=== PATIENT | female | born 1950 | race Caucasian/White ===

== ENCOUNTER 2016-04-27 06:20 | Day surgery (SDC) | payer OTHER ==
[2016-04-26 11:24] VITALS: BMI 25.8
[~2016-04-27] VITALS: Ht 160 cm; Wt 58.7 kg
[2016-04-27] VITALS (16 sets, daily range): BP systolic 154–207; BP diastolic 78–98; PULSE 71–90; RESP 16–22; Ht 160 cm; Wt 58.7 kg
[2016-04-27] MEDS ORDERED: SUCCINYLCHOLINE CHLORIDE 100 MG/5 ML SYG IV ONE (07:00)
[2016-04-27] MEDS ORDERED: CIPRO 400 MG/200 ML D5W IVPB ONE (07:00)
[2016-04-27] MEDS ORDERED: LIDOCAINE 2% (SDV) 5 ML INJ ONE (07:00)
[2016-04-27] MEDS ORDERED: LISI20TA11 PO (07:04)
[2016-04-27] MEDS ORDERED: AMLO-147 PO (07:05)
[2016-04-27] MEDS ORDERED: GLIP5TAB13 PO (07:06)
[2016-04-27] MEDS ORDERED: D-ME473S2 PO (07:07)
[2016-04-27] MEDS ORDERED: INDOMETHACIN 50 MG SUPP PR ONE (07:30)
[2016-04-27] MEDS ORDERED: IOHEXOL 300MG/ML 30 ML BTL ONE (07:30)
[2016-04-27 07:45] LABS: ADD SCAN DIFF NO
[2016-04-27 07:52] LABS: BASOPHIL # 0.1 10^3/ul (0.0-0.1); BASOPHILS % 0.6 % (0.0-2.0); EOSINOPHILS # 0.3 10^3/ul (0.0-0.5); EOSINOPHILS % 3.5 % (0.0-7.0); HEMATOCRIT 31.4 % (37.0-47.0); HEMOGLOBIN 10.4 g/dl (12.0-16.0); LYMPHOCYTES # 3.5 10^3/ul (0.8-2.9); LYMPHOCYTES % 40.9 % (15.0-51.0); MEAN CORPUSCULAR HEMOGLOBIN 29.5 pg (29.0-33.0); MEAN CORPUSCULAR HGB CONC 33.1 g/dl (32.0-37.0); MEAN PLATELET VOLUME 9.7 fl (7.4-10.4); MONOCYTE # 0.9 10^3/ul (0.3-0.9); MONOCYTES % 10.3 % (0.0-11.0); NEUTROPHIL # 3.8 10^3/ul (1.6-7.5); NEUTROPHILS % 44.5 % (39.0-77.0); PLATELET COUNT 337 10^3/UL (140-415); RED BLOOD COUNT 3.53 10^6/ul (4.20-5.40); RED CELL DISTRIBUTION WIDTH 15.8 % (11.5-14.5); WHITE BLOOD COUNT 8.6 10^3/ul (4.8-10.8)
[2016-04-27 07:56] LABS: ALBUMIN 3.2 g/dl (3.3-4.9); INR 0.97; PROTIME 12.9 Sec (12.2-14.2)
[2016-04-27 07:57] LABS: PARTIAL THROMBOPLASTIN TIME 27.3 Sec (25.0-35.0)
[2016-04-27 07:59] LABS: BILIRUBIN,INDIRECT 0.2 mg/dl (0-1.1); BILIRUBIN,TOTAL 0.2 mg/dl (0.2-1.3)
[2016-04-27 08:04] LABS: CALCIUM 8.4 mg/dl (8.4-10.2); POTASSIUM 4.9 mmol/L (3.5-5.1)
[2016-04-27 08:07] LABS: CREATININE 4.63 mg/dl (0.44-1.00)
[2016-04-27] MEDS ORDERED: PROPOFOL 20 ML ONE (08:22)
[2016-04-27] MEDS ORDERED: MEPERIDINE 25 MG INJ IV PRN (09:00)
[2016-04-27] MEDS ORDERED: ONDANSETRON 4 MG INJ IV PRN (09:00)
[2016-04-27] MEDS ORDERED: FENTAnyl 50 MCG/ML VIAL IV PRN (09:00)
--- NOTE | 2016-04-27 09:42 | RADRPT ---
PROCEDURE: Intraoperative imaging for ERCP with fluoroscopy. CLINICAL INDICATION: Right upper quadrant pain. Postop. Intraoperative. TECHNIQUE: 18 images of the right upper quadrant of the abdomen were obtained in the operating irene m with an image intensifier. No radiologist was in attendance. 12.9 seconds of fluoroscopy time wa s used. COMPARISON: No prior study is available for comparison. FINDINGS: Images demonstrate the endoscope in position. Contrast was injected into the common bile duct. Con trast enters the common bile duct not does not enter intrahepatic bile ducts. Contrast is noted in the common bile duct up to the point of multiple surgical clips. Contrast is not an. The cystic du ct but does. The duodenum. IMPRESSION: 1. ERCP as described above. 2. There appears to be obstruction of the upper common bile duct due to overlying surgical clips. Call report: A call report of the findings was made to Dr. Lau on 04/27/2016 at 0940 hours. RPTAT: QQ .Chad Brown MD, MD Date Time Electronically viewed and signed by .Chad Brown MD, on 04/27/2016 09:41 .R/
[2016-04-27] MEDS: LABETALOL HCL 20MG INJ IV PRN ×2 (09:47→10:07)
--- NOTE | 2016-04-27 11:53 | GILP ---
DATE OF PROCEDURE: 04/27/2016 PROCEDURE PERFORMED: ERCP. INDICATION: A 65-year-old female undergoing this procedure for removal of the stent and this was th e only information given to me both by the patient and the primary care office. The patient had ant e surgery at [facility]. Then, she had open surgery, but no other information was available either from the patient's , or the patient, or from the primary care office. The only information I had was to remove the stent. So the purpose of this procedure is to remove the stent and obtain a cholangiogram. As per the , they removed the stone at [facility]. The risks of the procedure, related and unrelated complications, anesthetic risks, alternatives discussed and inform ed consent was obtained. DESCRIPTION OF PROCEDURE: The patient was brought to the GI lab, sedated and intubated by the anest hesiologist and placed in a prone position. Cipro was given. Scope was passed with much ease into the esophagus, advanced further down into stomach and duodenum. Ampulla identified. There was a pe riampullary diverticulum. Stent was identified. Stent was removed successfully through the snare. However, when I did a cholangiogram, no dye was going above the staple near the cystic duct, indica ting that the bile duct was completely blocked by the staple. No wire would go, no dye would go. I did an occlusive cholangiogram, manipulated in all different directions, but no dye was going above the cystic duct junction indicating that the surgeon had accidentally put the staple on the bile du ct, resulting in complete blockage. So, scope was removed with good patient tolerance. IMPRESSION: 1. Removal of stent. 2. Complete blockage of the bile duct while doing cholecystectomy with a staple. PLAN: I wanted to send the patient to the ER for the drainage procedure, but before that I tried to gather more information. Luckily, son was here and son said yes patient had a complication by the surgeon at [facility] in [facility]. Subsequently, patient was transferred to the [facility] and they did a major surgery and fixed the problem. So, my personal feeling is batool t gathering information from the patient that they must have connected the bile duct to the jejunum. However, I will try to gather all the operative report and information and after that, we will dec mallika whether the patient needs hospitalization through the emergency room or not. Dictated By: RAI SANZ/KACIE Conf#: [id number] [facility]#: [id number] CC: ; RAI PIERCE MD;*EndCC*
== END 2016-04-27 11:35 | disposition home or self-care (01) ==
LOC: GIL 06:20 → SDS 06:20 → GIL 11:35
PROVIDERS: ATTEND Internal Medicine Gastroenterology
DX: Z45.89 Encounter for adjustment and management of other implanted devices (principal); E11.9 Type 2 diabetes mellitus without complications; I10 Essential (primary) hypertension; E78.5 Hyperlipidemia, unspecified
CPT/HCPCS: 43275; 74330; 80048; 80076; 82962; 85025; 85610; 85730; J0330; J0744; Q9967; Z7512; Z7610

== ENCOUNTER 2016-05-05 04:54 | Inpatient (IN) | payer OTHER ==
[2016-05-05] VITALS (14 sets, daily range): BP systolic 103–195; BP diastolic 65–95; PULSE 65–104; RESP 18; Ht 160 cm; Wt 59.3 kg
[~2016-05-05] VITALS: Ht 160 cm; Wt 59.3 kg
[~2016-05-05 04:54] MED LIST: AMLO-147 PO; D-ME473S2 PO; GLIP5TAB13 PO; LISI20TA11 PO
[2016-05-05] MEDS ORDERED: NITROGLYCERIN 50 MG/D5W (PMX) 250 ML IV SCH (04:56)
[2016-05-05] MEDS ORDERED: NITROGLYCERIN 50 MG/D5W (PMX) 250 ML ONE (05:01)
[2016-05-05 05:19] LABS: ADD SCAN DIFF NO; BASOPHIL # 0.1 10^3/ul (0.0-0.1); BASOPHILS % 0.4 % (0.0-2.0); EOSINOPHILS # 0.3 10^3/ul (0.0-0.5); EOSINOPHILS % 2.2 % (0.0-7.0); HEMATOCRIT 37.2 % (37.0-47.0); LYMPHOCYTES # 4.9 10^3/ul (0.8-2.9); LYMPHOCYTES % 40.9 % (15.0-51.0); MEAN CORPUSCULAR HEMOGLOBIN 29.1 pg (29.0-33.0); MEAN CORPUSCULAR HGB CONC 32.3 g/dl (32.0-37.0); MEAN CORPUSCULAR VOLUME 90.1 fl (82.0-101.0); MEAN PLATELET VOLUME 9.8 fl (7.4-10.4); MONOCYTE # 0.8 10^3/ul (0.3-0.9); MONOCYTES % 6.4 % (0.0-11.0); NEUTROPHILS % 49.8 % (39.0-77.0); PLATELET COUNT 362 10^3/UL (140-415); RED BLOOD COUNT 4.13 10^6/ul (4.20-5.40); RED CELL DISTRIBUTION WIDTH 16.2 % (11.5-14.5)
[2016-05-05 05:44] LABS: CREATININE 6.02 mg/dl (0.44-1.00)
--- NOTE | 2016-05-05 05:44 | RADRPT ---
PROCEDURE: XR Chest. CLINICAL INDICATION: SOB TECHNIQUE: Portable single view of the chest COMPARISON: None. FINDINGS: There is mild cardiomegaly. Dialysis catheter seen with tip likely in the superior vena cava. Ther e is pulmonary vascular congestion and interstitial edema. Alveolar opacity particulate the lung ba ses may be due to alveolar edema. No large effusion is seen. IMPRESSION: Probable moderate congestive heart failure. Infectious infiltrate of the lung bases cannot be exclu ded. Follow-up films are suggested. RPTAT: HLBE Pat Sin Physician Date Time Electronically viewed and signed by Pat Sin, Physician on 05/05/2016 05:44 LE/
[2016-05-05 05:45] LABS: CALCIUM 8.2 mg/dl (8.4-10.2); INR 0.95; PROTIME 12.7 Sec (12.2-14.2)
[2016-05-05 05:46] LABS: PARTIAL THROMBOPLASTIN TIME 27.7 Sec (25.0-35.0)
[2016-05-05 05:58] LABS: TROPONIN-I 0.048 ng/ml (0.00-0.12)
[2016-05-05 06:01] LABS: POTASSIUM 6.3 mmol/L (3.5-5.1)
[2016-05-05] MEDS ORDERED: ALBUTEROL 0.5% (NEB) 2.5 MG/0.5 ML AMP INH ONE (06:06)
[2016-05-05] MEDS ORDERED: CA GLUCONATE (GM) 10% 10ML INJ IV ONE (06:06)
[2016-05-05] MEDS ORDERED: NA POLYST SULFON 15 GM/60 ML BTL PO ONE (06:06)
[2016-05-05] MEDS ORDERED: NA BICARBONATE 8.4% 50 ML SYG IV ONE (06:06)
[2016-05-05 06:16] LABS: AADO2 Arterial 179.9 mmHg (7.0-24.0); Allen Test ACCEPTAB; Arterial Base Excess -4.3 mmol/L (-3.0-3); Arterial COHb 0.3 % (0.0-3.0); Arterial HCO3 20.4 mmol/L (22.0-26.0); Arterial MetHb 0.4 % (0.0-1.5); Arterial Total Hemglobin 11.8 g/dl (12.0-18.0); Blood Gas IEPAP 15/5; MODE MASK - BIPAP
--- NOTE | 2016-05-05 06:53 | ERA ---
ER Documentation Chief Complaint Date/Time DATE: 05/05/16 TIME: 06:50 Chief Complaint NEW ONSET RESPIRATORY DISTRESS FROM HOME HPI This is a 65-year-old Mongolian-speaking female who is brought into the emergency department by EMS after her phone 911. The patient developed a sudden onset of difficulty breathing at 2 AM this morning, 2 hours prior to arrival. The patient has a history of end-stage renal disease and receives dialysis every Tuesday and Tuesday. Her last full run of dialysis was 48 hours ago. The patient denies any fever shaking or chills. She does produce urine but denies any frequency urgency or dysuria. The patient denies a headache or changes in vision. She states she has no shortness of breath at rest or exertion. The patient had a recent surgical intervention with a biliary stent removal on April 27, 2016 performed at [facility] by Dr. Lau after the stent had been placed at [facility]. The patient's electric range servicer is Dr. Vernon. The patient denies any chest pain or pressure that radiates to the neck arm back or jaw. She denies a productive or nonproductive cough ROS All systems reviewed and are negative except as per history of present illness. Medications Home Meds Reported Medications Dextromethorphan Hb-Promethazine Hcl* (Promethazine DM* Syrup) 473 Ml Syrup, 5 ML PO Q6 Y for COUGH, ML 04/27/16 Glipizide* (Glipizide*) 5 Mg Tablet, 2.5 MG PO AC BREAKFAST LUNCH, TAB 04/27/16 Amlodipine Besylate* (Amlodipine Besylate*) 10 Mg Tablet, 10 MG PO DAILY, #30 TAB 04/27/16 Lisinopril* (Lisinopril*) 20 Mg Tablet, 20 MG PO DAILY, #30 TAB 04/27/16 Allergies Allergies: Coded Allergies: Insulins (Verified Allergy, Unknown, 05/05/16) Penicillins (Verified Allergy, Unknown, 05/05/16) morphine (Verified Allergy, Unknown, 05/05/16) PMhx/Soc History of Surgery: Yes (ERCP) Anesthesia Reaction: Yes (TUBAL LIGATION, CHOLECYSTECTOMY, HYSTERECTOMY) Hx Neurological Disorder: No Hx Respiratory Disorders: No Hx Cardiac Disorders: Yes (HYPERTENSION, CHF) Hx Psychiatric Problems: No Hx Miscellaneous Medical Probl: Yes (DM, RENAL FAILURE ON HD) Hx Alcohol Use: No Hx Substance Use: No Hx Tobacco Use: No Smoking Status: Never smoker Physical Exam Vitals Vital Signs Date Time Temp Pulse Resp B/P Pulse Ox O2 Delivery O2 Flow Rate FiO2 05/05/16 06:19 79 100 40 05/05/16 06:00 77 21 145/80 100 BIPAP 05/05/16 05:45 80 28 161/89 100 BIPAP 05/05/16 05:30 83 24 187/104 100 BIPAP 05/05/16 05:18 97.3 102 37 216/130 92 05/05/16 05:00 97 100 100 Physical Exam Constitutional:Well-developed. Well-nourished. Patient in severe respiratory distress HEENT:Normocephalic. Atraumatic.Pupils were equal round reactive to light. Moist mucous membranes.No tonsillar exudates. Neck: No nuchal rigidity. No lymphadenopathy. No posterior cervical spine tenderness or step-offs. Respiratory: Bilateral rhonchi. Tachypneic. Patient using accessory muscles of respiration. Cardiovascular: Regular rate regular rhythm.No murmurs. No rubs were appreciated.S1, S2 normal. Distal pulses are palpable 2+ bilaterally. GI: Abdomen was soft. Nontender. Non Distended. No pulsatile abdominal masses or bruits. No rebound. No guarding. Bowel sounds were present and normal. Muscle skeletal: Full range of motion of both the upper and lower extremities bilaterally.Normal muscle tone.No assymetrical calf tenderness or swelling. Skin: Diaphoretic with no petechia, no purpura. No lesions on the palms or the soles of the feet. No maculopapular rash. Right chest wall tunneled catheter clean dry and intact NEURO: Patient was alert, awake, orientated x3.No facial droop. Gait observed and normal with no ataxia.Speech had regular rate and rhythm. No focal neurological deficits. Result Diagram: 05/05/16 0507 05/05/16 0507 Results 24 hrs Laboratory Tests Test 05/05/16 05:07 05/05/16 05:26 05/05/16 05:56 Activated Partial Thromboplast Time 27.7Sec Anion Gap 19 B-Type Natriuretic Peptide 43879MM/ML Basophils # 0.110^3/ul Basophils % 0.4% Blood Urea Nitrogen 58mg/dl Calcium Level 8.2mg/dl Carbon Dioxide Level 22mmol/L Chloride Level 96mmol/L Creatinine 6.02mg/dl Eosinophils # 0.310^3/ul Eosinophils % 2.2% Glucose Level 184mg/dl Hematocrit 37.2% Hemoglobin 12.0g/dl INR International Normalized Ratio 0.95 Lymphocytes # 4.910^3/ul Lymphocytes % 40.9% Mean Corpuscular Hemoglobin 29.1pg Mean Corpuscular Hemoglobin Concent 32.3g/dl Mean Corpuscular Volume 90.1fl Mean Platelet Volume 9.8fl Monocytes # 0.810^3/ul Monocytes % 6.4% Neutrophils # 6.010^3/ul Neutrophils % 49.8% Nucleated Red Blood Cells # 0.010^3/ul Nucleated Red Blood Cells % 0.0/100WBC Platelet Count 42938^3/UL Potassium Level 6.3mmol/L Prothrombin Time 12.7Sec Prothrombin Time Ratio 1.0 Red Blood Count 4.1310^6/ul Red Cell Distribution Width 16.2% Sodium Level 131mmol/L Troponin I 0.048ng/ml White Blood Count 12.010^3/ul Bedside Glucose 184mg/dL Arterial Blood HCO3 20.4mmol/L Arterial Blood Base Excess -4.3mmol/L Arterial Blood Oxygen Saturation 99.7mmHG Justin Test ACCEPTAB Arterial Blood Gas Puncture Site Left Radial Arterial Blood Carboxyhemoglobin 0.3% Arterial Blood Date Drawn 05/05/2016 6:00:56 AM Arterial Blood Methemoglobin 0.4% Arterial Blood pCO2 (Temp correct) 35.8mmhg Arterial Blood pH (Temp corrected) 7.373 Arterial Blood pO2 (Temp corrected) 497.3mmHG Blood Gas A-a O2 Differential 179.9mmHg Blood Gas Actual Respiration Rate 20 Blood Gas IPAP/EPAP Ratio 15/5 Blood Gas Inspiratory Time 0.6 Blood Gas Modality MASK - BIPAP Blood Gas Notified Time 05/05/2016 6:15:49 AM Blood Gas Notified Whom AA Blood Gas Respiration Rate 14.0 Blood Gas Specimen Source Blood arterial Blood Gas Temperature 37.0C FiO2 100.0% Oxyhemoglobin Percent 99.0% Total Hemoglobin 11.8g/dl Current Medications Medications (Trade) Dose Ordered Sig/Marcus Route PRN Reason Start Time Stop Time Status Last Admin Dose Admin Nitroglycerin/ Dextrose (Nitroglycerin 50 Mg/D5W (Pmx)) 250 ml @ 12 mls/hr TITRATE IV 05/05/16 04:56 05/05/16 05:15 Sodium Polystyrene Sulfonate (Kayexalate) 30 gm ONCE ONCE PO 05/05/16 06:06 05/05/16 06:10 DC 05/05/16 06:53 Albuterol (Proventil 0.5% (Neb)) 15 mg ONCE ONCE INH 05/05/16 06:06 05/05/16 06:10 DC 05/05/16 06:18 Sodium Bicarbonate (Na Bicarb 8.4% Syg) 50 ml ONCE ONCE IV 05/05/16 06:06 05/05/16 06:10 DC 05/05/16 06:52 Calcium Gluconate (Ca Gluc) 1 gm ONCE ONCE IV 05/05/16 06:06 05/05/16 06:10 DC 05/05/16 06:53 Procedures/MDM The patient presented to the emergency department with dyspnea. My differential diagnosis included but was not limited to upper airway obstruction, CHF, pulmonary embolism, cardiac ischemia, pneumonia, pneumothorax, anemia, drug overdose, pulmonary edema, COPD or asthma. The patient was immediately placed in a assembled wood products repairer continuous pulse oximetry and IV access was established by nursing staff. The patient was placed on a nonrebreather for noninvasive mechanical ventilation due to her severe respiratory distress which was thought to be a result of severe pulmonary edema. This patient presented to the emergency department with severely elevated blood pressure. My differential diagnosis included but was not limited to conditions that could end-organ damage such as acute coronary syndrome, acute pulmonary edema, aortic dissection, subarachnoid hemorrhage, intracerebral hemorrhage, cerebral infarction, withdrawal syndromes from beta blockers, or states of catecholamine excess such as pheochromocytoma or drug intoxication. The patient had uncontrolled hypertensive with end-organ damage to suggest hypertensive emergency. The treatment goal was immediate reduction of the mean arterial blood pressure. This was done in a controlled, graded manor, using improvement of the patient's condition as a guide. The patient's blood pressure reduction did not exceed more then a 20-25 percent reduction within the first 30 to 60 minutes. The patient was put on a assembled wood products repairer, continuous pulse oximetry, and IV access was established by nursing staff. The antihypertensive agent used was nitroglycerin drip. The patient was also hyperkalemic and was treated with albuterol, Kayexalate, Lasix bicarb and calcium chloride. 12 Lead EKG tracing ordered and reviewed by myself showed: Normal sinus rhythm of 93 bpm and no arrhythmia. [place] interval normal. QRS duration normal. No ST segment elevation. Left ventricular hypertrophy No ST segment depression. No changes consistent with acute ischemia. Upon reevaluation the patient's respiratory distress had significantly improved. I have contacted her electric range servicer Dr. Vernon to arrange for emergent hemodialysis. Critical Care: Time: 60 minutes Treatments/Evaluations: Close monitoring and treatment of unstable vital signs, cardiorespiratory, and neurologic status, while maintaining tight balance of fluid, respiratory, and cardiac interventions. Time does not include performing any of the above billable procedures. Departure Diagnosis: Primary Impression: Pulmonary edema with congestive heart failure Additional Impressions: Hypertensive emergency Respiratory failure Qualified Code: J96.01 - Acute respiratory failure with hypoxia Hyperkalemia Condition: Serious NYDIA JORDAN May 05, 2016 06:53
[2016-05-05] MEDS ORDERED: ACETAMINOPHEN 325 MG TAB PO PRN ×2 (07:30→19:30)
[2016-05-05] MEDS ORDERED: ONDANSETRON 4 MG INJ IV PRN ×2 (07:30→19:30)
[2016-05-05 09:21] LABS: AMYLASE 90 U/L (11-123)
[2016-05-05] MEDS: hydrALAzine 20 MG INJ IV PRN (13:21)
--- NOTE | 2016-05-05 15:47 | QN ---
Documentation Comment [id number] KIRK HERNANDEZ MD May 05, 2016 15:46
--- NOTE | 2016-05-05 16:32 | HP ---
DATE OF ADMISSION: 05/05/2016 HISTORY OF PRESENT ILLNESS: The patient is a 65-year-old female with history of ESRD, history of hy pertension, history of stent removal by Dr. Lau in the past from the common bile duct, diabetes m jeb, presented to this hospital with short of breath and missed dialysis. The patient is a poor historian and patient in the ER was noted to have WBC 12, hematocrit 37. Sodium 131, potassium 6.3 , received Kayexalate and was transferred to the floor for further management. PAST MEDICAL HISTORY: Diabetes, hypertension, history of cholecystectomy per patient, a history of common bile duct stent removal. ALLERGIES: LISTED: 1. INSULIN. 2. PENICILLIN. 3. MORPHINE. SOCIAL HISTORY: Negative. MEDICATION HISTORY: 1. Amlodipine. 2. Glipizide. 3. Lisinopril. 4. Promethazine. REVIEW OF SYSTEMS: HEENT: Unremarkable. RESPIRATORY: Short of breath. CARDIOVASCULAR: No chest pain, palpitation. ABDOMEN: Dyspepsia. EXTREMITIES: No swelling. CENTRAL NERVOUS SYSTEM: Unremarkable. PHYSICAL EXAMINATION: GENERAL: The patient is awake and alert. VITAL SIGNS: Pulse 90, blood pressure 195 ____ earlier and patient also has been running blood pres sure 160/88. HEAD: Atraumatic, normocephalic. Pupils equal, reactive to light. NECK: Supple. No JVD. LUNGS: Shows basilar rales. CARDIOVASCULAR: S1, S2 normal. ABDOMEN: Soft, nontender. Bowel sounds present. No palpable mass or hepatosplenomegaly. No guard ing, rebound tenderness. EXTREMITIES: There is no cyanosis, clubbing, or edema. CENTRAL NERVOUS SYSTEM: The patient is awake, alert, no focal deficit. LABORATORY DATA: pH 7.37, pCO2 of 35, pO2 of 497 and WBC 12, potassium 6.3. BNP 75, 500. IMPRESSION: 1. The patient's chest x-ray shows the patient has congestive heart failure. 2. Missed dialysis. 3. Elevated BNP. 4. Hyperkalemia. 5. Leukocytosis. 6. History of hypertension. 7. History of common bile duct stent removal. PLAN: Give this patient a renal diet. Continue sliding scale. Patient will not be given insulin. The patient's home medications will be reviewed and continued. The patient will have blood pressur e control. Orders were done. A 2D echo will be ordered. Dictated By: KIRK GARCIA/KACIE Conf#: [id number] DID#: [id number]
[2016-05-05] MEDS ORDERED: GLUCOSE GEL 15 GRAM TUBE PO PRN ×2 (19:30)
[2016-05-05] MEDS ORDERED: PROMETHAZINE/DM (CUP) PO PRN (19:30)
[2016-05-05] MEDS ORDERED: NACL 0.9% 3 ML SYG IV SCH (19:30)
[2016-05-05] MEDS ORDERED: GLUCOSE GEL 15 GRAM TUBE BUCCAL PRN (19:30)
[2016-05-05] MEDS ORDERED: GLUCAGON 1 MG INJ IM PRN (19:30)
[2016-05-05] MEDS ORDERED: DEXTROSE 50% 50 ML SYRINGE IV PRN ×2 (19:30)
[2016-05-05] MEDS ORDERED: DOCUSATE SODIUM 100 MG CAP PO PRN (19:30)
[2016-05-05] MEDS ORDERED: INSULIN ASPART [NOVOLOG] 3 ML PEN SC SCH (21:00)
[2016-05-06] VITALS (19 sets, daily range): BP systolic 148–206; BP diastolic 70–100; PULSE 80–99; RESP 16–20
[2016-05-06] MEDS ORDERED: ACCUCHECK XX SCH (02:00)
[2016-05-06] MEDS: PANTOPRAZOLE (EC) 40 MG TAB PO SCH (05:26)
[2016-05-06] MEDS: hydrALAzine 20 MG INJ IV PRN (05:26)
[2016-05-06] MEDS ORDERED: VITAMIN A & D 5 GM OINT PACKET TOP ONE (05:30)
[2016-05-06 07:31] LABS: ADD SCAN DIFF NO
[2016-05-06 07:38] LABS: BASOPHILS % 0.3 % (0.0-2.0); EOSINOPHILS # 0.2 10^3/ul (0.0-0.5); EOSINOPHILS % 2.5 % (0.0-7.0); HEMATOCRIT 33.6 % (37.0-47.0); HEMOGLOBIN 11.1 g/dl (12.0-16.0); LYMPHOCYTES # 2.8 10^3/ul (0.8-2.9); LYMPHOCYTES % 43.9 % (15.0-51.0); MEAN CORPUSCULAR HEMOGLOBIN 29.4 pg (29.0-33.0); MEAN CORPUSCULAR VOLUME 88.9 fl (82.0-101.0); MEAN PLATELET VOLUME 10.5 fl (7.4-10.4); MONOCYTE # 0.8 10^3/ul (0.3-0.9); NEUTROPHIL # 2.6 10^3/ul (1.6-7.5); NEUTROPHILS % 41.1 % (39.0-77.0); PLATELET COUNT 368 10^3/UL (140-415); RED BLOOD COUNT 3.78 10^6/ul (4.20-5.40); RED CELL DISTRIBUTION WIDTH 16.3 % (11.5-14.5); WHITE BLOOD COUNT 6.4 10^3/ul (4.8-10.8)
[2016-05-06 07:51] LABS: ALBUMIN 3.5 g/dl (3.3-4.9)
[2016-05-06 07:52] LABS: POTASSIUM 4.1 mmol/L (3.5-5.1)
[2016-05-06 07:54] LABS: ALBUMIN/GLOBULIN RATIO 0.89; BILIRUBIN,INDIRECT 0.5 mg/dl (0-1.1); BILIRUBIN,TOTAL 0.5 mg/dl (0.2-1.3); CREATININE 4.11 mg/dl (0.44-1.00); TOTAL PROTEIN 7.4 g/dl (6.1-8.1)
[2016-05-06 07:55] LABS: CALCIUM 7.8 mg/dl (8.4-10.2)
[2016-05-06] MEDS: LISINOPRIL 20 MG TAB PO SCH (08:23)
[2016-05-06] MEDS: AMLODIPINE 10 MG TAB PO SCH (08:23)
[2016-05-06] MEDS: glipiZIDE 5 MG TAB PO SCH ×2 (08:29→13:19)
[2016-05-06] MEDS: ENOXAPARIN 30 MG/0.3 ML SYG SC SCH (08:31)
[2016-05-06] MEDS ORDERED: LISINOPRIL 20 MG TAB PO SCH (09:00)
[2016-05-06] MEDS ORDERED: AMLODIPINE 10 MG TAB PO SCH (09:00)
--- NOTE | 2016-05-06 12:47 | PDOCDIS ---
Discharge Instructions CONDITION Patient Condition: Stable ACTIVITY: Activity Restrictions: Slowly Increase Activity FOLLOW UP/APPOINTMENTS Appointments f/u pcp [address] lopez 1 wk KIRK HERNANDEZ MD May 06, 2016 12:47
[2016-05-06] MEDS ORDERED: HYDR-3671 PO (12:50)
[2016-05-06] MEDS: ACCUCHECK XX SCH ×2 (17:35→20:18)
--- NOTE | 2016-05-06 19:30 | RADRPT ---
Echocardiogram Report Patient Name: ANASTACIA RIDLEY Gender: Female Date: 1950 Study Date: 06-May-2016 Retail Maintenance Technician: George Kirkpatrick [facility] Location: [id number] Ref. Physician: KIRK HERNANDEZ Quality: Good Procedures: Transthoracic echocardiogram with complete 2D, M-Mode, and doppler examination. Indications: Coronary Artery Disease. 2D/M Mode Doppler Measurement Value Normal Ranges Measurement Value Normal Ranges LVIDd 2D 4.9 3.5 - 5.6 cm AV Peak Suhas 1.5 m/sec LVIDs 2D 3.7 2.1 - 4.1 cm AV Peak PG 10.0 mmHg FS 2D 25.5 % LVOT Peak Suhas 1.0 m/sec LVPWd 2D 1.0 0.6 - 1.1 cm LVOT Peak PG 4.0 mmHg IVSd 2D 1.1 0.6 - 1.1 cm MV E Peak Suhas 1.4 m/sec IVS/LVPW 2D 1.1 MV Decel Time 92 msec AoR Diam 2D 2.3 2.0 - 3.7 cm TR Peak Suhas 3.0 m/sec LA/Ao 2D 2 0 - 1 TR Peak PG 37.0 mmHg EDV 2D 121.0 cm3 RVSP 40.0 mmHg ESV 2D 50.2 cm3 LA Dimen 2D 4.4 2.3 - 4.0 cm Findings Left Ventricle: Lower limits of normal systolic function. Normal left ventricular cavity size. Mild concentric left ventricular hypertrophy. Ejection fraction is visually estimated at 5055 %. Right Ventricle: Normal right ventricular size. Normal right ventricular systolic function. Left Atrium: There is moderate enlargement of left atrium. LA Dimension4.40 cm. Right Atrium: The right atrium is normal in size. Mitral Valve: Mitral valve leaflets appear mildly thickened. Mild mitral annular calcification. Moderate mitral valve regurgitation. Aortic Valve: Aortic cusps appear mildly calcified. Mild aortic valve regurgitation. Tricuspid Valve: Normal appearance of the tricuspid valve. Estimated peak PA systolic pressure 40 mmHg. There is mild tricuspid regurgitation. Pulmonic Valve: Normal pulmonic valve appearance. Pulmonic valve not well visualized. Pericardium: Trivial pericardial effusion. Aorta: Normal aortic root. IVC: Normal size and normal respiratory collapse consistent with normal right atrial pressure. Conclusions Lower limits of normal systolic function. Normal left ventricular cavity size. Mild concentric left ventricular hypertrophy. Ejection fraction is visually estimated at 50-55 %. Mitral valve leaflets appear mildly thickened. Mild mitral annular calcification. Moderate mitral valve regurgitation. Aortic cusps appear mildly calcified. Mild aortic valve regurgitation. Normal appearance of the tricuspid valve. Estimated peak PA systolic pressure 40 mmHg. There is mild tricuspid regurgitation. Trivial pericardial effusion. Electronically Signed By: Leo Lieberman 06-May-2016 19:28:47 -0800 Patient Name: ANASTACIA RIDLEY Study Date: 06-May-2016 [id number]
--- NOTE | 2016-05-06 20:46 | PN ---
Date/Time of Note Date/Time of Note DATE: 05/06/16 TIME: 20:45 Assessment/Plan VTE Prophylaxis VTE Prophylaxis Intervention: other Lines/Catheters IV [facility] Permacath Urinary Cath still in place: No Assessment/Plan Chief Complaint/Hosp Course IMPRESSION: 1. The patient's chest x-ray shows the patient has congestive heart failure. 2. Missed dialysis. 3. Elevated BNP. 4. Hyperkalemia. 5. Leukocytosis. 6. History of hypertension. 7. History of common bile duct stent removal. plan hd home soon Problems: Subjective 24 Hr Interval Summary Cardiovascular: no complaints Gastrointestinal: no complaints Genitourinary: no complaints Exam/Review of Systems Vital Signs Vitals Vital Signs Date Time Temp Pulse Resp B/P Pulse Ox O2 Delivery O2 Flow Rate FiO2 05/06/16 20:33 89 05/06/16 19:32 98.4 18 167/88 99 Room Air 05/05/16 07:15 40 Intake and Output 05/05/16 05/05/16 05/06/16 15:00 23:00 07:00 Intake Total 820 ml 60 ml Output Total 5300 ml Balance -4480 ml 60 ml Exam Respiratory: clear to auscultation Cardiovascular: regular rate and rhythm Gastrointestinal: soft Musculoskeletal: nl extremities to inspection Extremities: normal pulses Results Result Diagram: 05/06/16 0634 05/06/16 0634 Results 24 hrs Laboratory Tests Test 05/06/16 05:22 05/06/16 06:34 05/06/16 07:43 05/06/16 13:15 Bedside Glucose 96 135 85 Alanine Aminotransferase (ALT/SGPT) 39 Albumin 3.5 Albumin/Globulin Ratio 0.89 Alkaline Phosphatase 235 H Anion Gap 17 H Aspartate Amino Transf (AST/SGOT) 49 H Basophils # 0.0 Basophils % 0.3 Blood Urea Nitrogen 25 #H Calcium Level 7.8 L Carbon Dioxide Level 26 Chloride Level 95 L Creatinine 4.11 #H Direct Bilirubin 0.00 Eosinophils # 0.2 Eosinophils % 2.5 Globulin 3.90 H Glucose Level 114 # Hematocrit 33.6 L Hemoglobin 11.1 L Indirect Bilirubin 0.5 Lymphocytes # 2.8 Lymphocytes % 43.9 Mean Corpuscular Hemoglobin 29.4 Mean Corpuscular Hemoglobin Concent 33.0 Mean Corpuscular Volume 88.9 Mean Platelet Volume 10.5 H Monocytes # 0.8 Monocytes % 12.0 H Neutrophils # 2.6 Neutrophils % 41.1 Nucleated Red Blood Cells # 0.0 Nucleated Red Blood Cells % 0.0 Platelet Count 368 Potassium Level 4.1 # Red Blood Count 3.78 L Red Cell Distribution Width 16.3 H Sodium Level 134 L Total Bilirubin 0.5 Total Protein 7.4 White Blood Count 6.4 # Test 05/06/16 18:19 05/06/16 19:47 Bedside Glucose 123 151 Medications Medications Current Medications Hydralazine HCl (Apresoline) 20 mg Q6H PRN IV ELEVATED SYSTOLIC BP Last administered on 05/06/16 05:26; Admin Dose 20 MG; Start 05/05/16 at 13:30 Promethazine HCl/ Dextromethorphan (Phenergan-Dm) 5 ml Q6H PRN PO COUGH; Start 05/05/16 at 19:30 Miscellaneous Information 1 ea NOTE XX ; Start 05/05/16 at 19:30 Glucose (Glutose) 15 gm Q15M PRN PO DECREASED GLUCOSE; Start 05/05/16 at 19:30 Glucose (Glutose) 22.5 gm Q15M PRN PO DECREASED GLUCOSE; Start 05/05/16 at 19:30 Dextrose (D50w Syringe) 25 ml Q15M PRN IV DECREASED GLUCOSE; Start 05/05/16 at 19:30 Dextrose (D50w Syringe) 50 ml Q15M PRN IV DECREASED GLUCOSE; Start 05/05/16 at 19:30 Glucagon (Glucagen) 1 mg Q15M PRN IM DECREASED GLUCOSE; Start 05/05/16 at 19:30 Glucose (Glutose) 15 gm Q15M PRN BUCCAL DECREASED GLUCOSE; Start 05/05/16 at 19: 30 Ondansetron HCl (Zofran Inj) 4 mg Q6H PRN IV NAUSEA AND/OR VOMITING; Start 05/05 at 19:30 Acetaminophen (Tylenol Tab) 650 mg Q6H PRN PO PAIN LEVEL 1-3 OR FEVER; Start at 19:30 Docusate Sodium (Colace) 100 mg Q12H PRN PO CONSTIPATION; Start 05/05/16 at 19: 30 Pantoprazole (Protonix Tab) 40 mg DAILY@06 PO Last administered on 05/06/16 05: 26; Admin Dose 40 MG; Start 05/06/16 at 06:00 Enoxaparin Sodium (Lovenox) 30 mg DAILY SC ; Start 05/06/16 at 09:00 Amlodipine Besylate (Norvasc) 10 mg DAILY PO Last administered on 05/06/16 08: 23; Admin Dose 10 MG; Start 05/06/16 at 09:00 Lisinopril (Zestril) 20 mg DAILY PO Last administered on 05/06/16 08:23; Admin Dose 20 MG; Start 05/06/16 at 09:00 Hydralazine HCl (Apresoline) 50 mg TID PO Last administered on 05/06/16 20:20; Admin Dose 50 MG; Start 05/06/16 at 21:00 KIRK HERNANDEZ MD May 06, 2016 20:46
[2016-05-07] VITALS (10 sets, daily range): BP systolic 151–178; BP diastolic 83–92; PULSE 83–99; RESP 19–20
--- NOTE | 2016-05-07 00:41 | CONS ---
DATE OF ADMISSION: 05/05/2016 DATE OF CONSULTATION: 05/06/2016 TYPE OF CONSULTATION: Cardiology. REASON FOR CONSULTATION: Hypertensive urgency/emergency as well as abnormal electrocardiogram. Ass ess for acute coronary syndrome and shortness of breath, assess for congestive heart failure. REQUESTING PHYSICIAN: Dr. Sam Hernandez HISTORY OF PRESENT ILLNESS: Ms. Paredes is a 65-year-old female with a history of diabetes mellitu s, hypertension, prior cholecystectomy, and diabetes mellitus who initially presented with prior cho lecystectomy, end stage renal disease who initially presented with complaints of shortness of breath and uncontrolled systolic blood pressures. PHYSICAL EXAMINATION: VITAL SIGNS: Initially upon arrival, temperature 97.3, blood pressure markedly elevated at 216/130, pulse 102, respiration rate 37, saturating 92%. GENERAL: The patient's labs showed white count of 12.0, hemoglobin 12.0, platelet count 362, a sodi um 131, potassium 6.3, creatinine 6.0, BUN of 58. Troponin negative. BNP of 75,500. INR 0.95. AB G revealing a pH of 7.373, a PaO2 of 497, a pCO2 of 35. The patient underwent a chest x-ray reveali ng probable moderate congestive heart failure, infectious infiltrated of the lung base could not be excluded. Patient's electrocardiogram with normal sinus rhythm, rate 93, normal axis, normal interv als, with lateral T-wave inversion. Patient subsequently admitted to the floor and since admit to [facility], the patient having hemodialysis with improvement in elevated potassium as well as was shor tness of breath. The patient had undergone hemodialysis with an improvement in shortness of breath. The patient at this time denies chest pain. PAST MEDICAL HISTORY: As above in HPI. MEDICATIONS CURRENTLY IN HOSPITAL: 1. Hydralazine 25 mg p.o. t.i.d. 2. Lovenox 20 mg subcu daily. 3. Norvasc 10 mg daily. 4. Zestril 20 mg daily. 5. Glipizide 2.5 mg daily. 6. Protonix 40 mg daily. 7. Phenergan p.r.n. 8. P.r.n. Zofran. 9. P.r.n. Tylenol. 10. P.r.n. Colace. 11. Hydralazine p.r.n. IV push. ALLERGIES: 1. INSULINS. 2. PENICILLIN. 3. MORPHINE. SOCIAL HISTORY: No tobacco, ETOH or illicit drug use. FAMILY HISTORY: Negative for sudden cardiac or early CAD. REVIEW OF SYSTEMS: As above in HPI. CONSTITUTIONAL: No fevers, chills. PULMONARY: Shortness of breath improved. CARDIOVASCULAR: Heart failure, improved on hemodialysis. GASTROINTESTINAL: No vomiting. GENITOURINARY: No hematuria. MUSCULOSKELETAL: Degenerative joint disease. PSYCHIATRIC: The patient denies depression. NEUROLOGIC: No documented history of CVA. PHYSICAL EXAMINATION VITAL SIGNS: Temperature of 97.3, blood pressure most recently of 153/50, pulse 100, sating 98%. GENERAL: The patient is alert, awake, in no acute distress. NECK: JVP approximately 9 cm water. CHEST: Fair movement throughout with mildly decreased breath sounds at bases bilaterally. HEART: Regular rate and rhythm. Normal S1, S2, I/ systolic murmur, nondisplaced PMI. ABDOMEN: Positive bowel sounds, soft. EXTREMITIES: No pitting edema, 1+ pulses bilaterally, posterior tibial. LABORATORY DATA: Most recently from today, sodium 134, potassium of 4.1, creatinine of 4.1, BUN 25, AST 49, ALT 39. White blood cell count 6.4, hemoglobin 11.1, platelet count 368. INR 0.95. IMAGING STUDIES: As above in HPI. No further imaging studies for my review at this time. ECG: As above in HPI. No further electrocardiograms for my review at this time. IMPRESSION: 1. Congestive heart failure exacerbation, question systolic versus diastolic, acute on chronic like ly. Improved status post hemodialysis. 2. Hypertensive urgency/emergency. Slowly improving on oral antihypertensives. 3. Abnormal electrocardiogram, assess for acute coronary syndrome. 4. Hyperkalemia, improving status post hemodialysis. 5. End-stage renal disease on hemodialysis. 6. Anemia. 7. Hyponatremia. 8. Increased BNP. RECOMMENDATIONS: 1. At this time, would maintain the patient on telemetry monitoring to follow rhythm and rate contr ol closely. 2. Would send a second troponin to ensure that the patient's EKG abnormalities are chronic in natur e and not due to any recent acute coronary syndrome. 3. We will follow the patient's 2D echo for assessment of ejection fraction, wall motion or any charmaine or abnormalities. 4. Continue the patient's current hydralazine, Norvasc, lisinopril with up titration as necessary t o improve overall systolic blood pressure control. 6. Hemodialysis for volume removal. 7. Check a fasting lipid panel for general risk stratification and initiate lipid-lowering medicati on as necessary. 8. Patient likely okay for a discharge to home as shortness of breath has improved and his troponin returns negative and blood pressure improves. Thank you for allowing me to take part in the care of this patient. I will continue to follow along very closely with you with further recommendations to be made as the patient progresses through her inpatient hospital clinical course. Dictated By: AROLDO DIAS MD JH/KACIE Conf#: [id number] DID#: [id number] CC: SAM HERNANDEZ MD;*End*
[2016-05-07] MEDS: PANTOPRAZOLE (EC) 40 MG TAB PO SCH (05:58)
[2016-05-07] MEDS: glipiZIDE 5 MG TAB PO SCH ×2 (07:30→11:30)
[2016-05-07 08:26] LABS: CHOL/HDL RATIO 3.5 RATIO
[2016-05-07] MEDS: ACCUCHECK XX SCH ×3 (08:29→17:43)
[2016-05-07 08:36] LABS: CK-MB 1.2 ng/ml (0.0-2.4)
[2016-05-07] MEDS: AMLODIPINE 10 MG TAB PO SCH (08:41)
[2016-05-07] MEDS: LISINOPRIL 20 MG TAB PO SCH (08:41)
[2016-05-07] MEDS: ENOXAPARIN 30 MG/0.3 ML SYG SC SCH (08:42)
[2016-05-07 08:44] LABS: TROPONIN-I 0.146 ng/ml (0.00-0.12)
--- NOTE | 2016-05-07 08:46 | RADRPT ---
PROCEDURE: XR Chest. CLINICAL INDICATION: Shortness of breath TECHNIQUE: An AP view of the chest was obtained. COMPARISON: Chest x-ray dated 05/05/2016 FINDINGS: There is a right chest Perma-Cath with tip near the cavoatrial junction. There are diffuse reticulonodular interstitial opacities. Calcific nodules are seen within the righ t upper lobe. Ill-defined nodular densities are noted within the left upper lobe. No pleural effus ion or pneumothorax is seen. The cardiomediastinal silhouette is mildly enlarged . Calcifications a re seen within the aortic arch. The osseous structures demonstrate senescent changes. IMPRESSION: 1. Chronic-appearing interstitial changes. There is improved aeration of the lung bases with inter kylee improvement in degree of pulmonary vascular congestion when compared to the prior examination. 2. Ill-defined left upper lobe nodular densities. Consider CT of the chest for further evaluation. 3. Right upper lobe calcified nodules, likely the sequela of prior granulomatous disease. 4. Mild cardiomegaly and aortic atherosclerosis. 5. Right chest Perma-Cath with tip near the cavoatrial junction. RPTAT: HH .Samira Mauricio MD, Date Time Electronically viewed and signed by .Samira Mauricio MD, on 05/07/2016 08:46 .G/
[2016-05-07] MEDS ORDERED: REGADENOSON 0.4 MG/5 ML SYG ONE (12:01)
--- NOTE | 2016-05-07 12:56 | CONS ---
Date/Time of Note Date/Time of Note DATE: 05/07/16 TIME: 12:52 Assessment/Plan Assessment/Plan Chief Complaint/Hosp Course IMPRESSION: 1. Congestive heart failure exacerbation, question systolic versus diastolic, acute on chronic likely. Improved status post hemodialysis. 2. Hypertensive urgency/emergency. Slowly improving on oral antihypertensives.- still uncontrolled 3. Abnormal electrocardiogram, assess for acute coronary syndrome. 4. Hyperkalemia, improving status post hemodialysis. 5. End-stage renal disease on hemodialysis. 6. Anemia. 7. Hyponatremia. 8. Increased BNP. 9. Positive troponin-minimal in setting of aldo; failure REcc: -Tele -serial ecg's -Uptitrate anti-hypertensives staring with hydralazine -Continue zestril/norvasc -Start asa given positive troponin -Lexiscan stress test today -HD for volume removal Problems: Consultation Date/Type/Reason Admit Date/Time May 05, 2016 at 11:10 Initial Consult Date 05/06/2016 Type of Consultation: Cardiology Reason for Consultation Chest pain/positive troponin Referring Provider: KIRK HERNANDEZ MD Exam/Review of Systems Vital Signs Vitals Vital Signs Date Time Temp Pulse Resp B/P Pulse Ox O2 Delivery O2 Flow Rate FiO2 05/07/16 12:10 85 05/07/16 11:53 98.1 19 171/84 97 05/06/16 19:32 Room Air 05/05/16 07:15 40 Intake and Output 05/06/16 05/06/16 05/07/16 14:59 22:59 06:59 Intake Total 300 ml 720 ml Output Total 3300 ml Balance -3000 ml 720 ml Exam Review of Systems: CONSTITUTIONAL: No fevers, chills. PULMONARY: mild sob CARDIOVASCULAR: No chest pain/palpitations GASTROINTESTINAL: No nausea/vomiting. GENITOURINARY: No hematuria/dysuria. MUSCULOSKELETAL: No myagias/arthalgias. PSYCHIATRIC: The patient denies depression. NEUROLOGIC: No weakness Constitutional: alert Psych: no complaints Head: normocephalic ENMT: mucosa pink and moist Neck: supple Respiratory: clear to auscultation Cardiovascular: regular rate and rhythm Gastrointestinal: non-tender, soft Musculoskeletal: muscle tone (normal) Extremities: edema (None) Neurological: other (No focal deficits) Results Result Diagram: 05/06/1634 05/06/16633 Results 24 hrs Laboratory Tests Test 05/06/16 13:15 05/06/16 18:19 05/06/16 19:47 05/06/16 19:57 Bedside Glucose 85 123 151 Troponin I 0.180 *H Test 05/07/16 07:40 05/07/16 08:24 Cholesterol Level 209 H Cholesterol/HDL Ratio 3.5 Creatine Kinase 85 Creatine Kinase Index 1.4 Creatinine Kinase MB (Mass) 1.20 HDL Cholesterol 59 LDL Cholesterol, Calculated 123 Triglycerides Level 135 Troponin I 0.146 *H Bedside Glucose 94 Medications Medications Current Medications Hydralazine HCl (Apresoline) 20 mg Q6H PRN IV ELEVATED SYSTOLIC BP Last administered on 05/06/16t 05:26; Admin Dose 20 MG; Start 05/05/16 at 13:30 Promethazine HCl/ Dextromethorphan (Phenergan-Dm) 5 ml Q6H PRN PO COUGH; Start 05/05/16 at 19:30 Miscellaneous Information 1 ea NOTE XX ; Start 05/05/16 at 19:30 Glucose (Glutose) 15 gm Q15M PRN PO DECREASED GLUCOSE; Start 05/05/16 at 19:30 Glucose (Glutose) 22.5 gm Q15M PRN PO DECREASED GLUCOSE; Start 05/05/16 at 19:30 Dextrose (D50w Syringe) 25 ml Q15M PRN IV DECREASED GLUCOSE; Start 05/05/16 at 19:30 Dextrose (D50w Syringe) 50 ml Q15M PRN IV DECREASED GLUCOSE; Start 05/05/16 at 19:30 Glucagon (Glucagen) 1 mg Q15M PRN IM DECREASED GLUCOSE; Start 05/05/16 at 19:30 Glucose (Glutose) 15 gm Q15M PRN BUCCAL DECREASED GLUCOSE; Start 05/05/16 at 19: 30 Ondansetron HCl (Zofran Inj) 4 mg Q6H PRN IV NAUSEA AND/OR VOMITING; Start 05/05 at 19:30 Acetaminophen (Tylenol Tab) 650 mg Q6H PRN PO PAIN LEVEL 1-3 OR FEVER; Start at 19:30 Docusate Sodium (Colace) 100 mg Q12H PRN PO CONSTIPATION; Start 05/05/16 at 19: 30 Pantoprazole (Protonix Tab) 40 mg DAILY@06 PO Last administered on 05/06/16 05: 26; Admin Dose 40 MG; Start 05/06/16 at 06:00 Enoxaparin Sodium (Lovenox) 30 mg DAILY SC Last administered on 05/07/16 08:42 ; Admin Dose 30 MG; Start 05/06/16 at 09:00 Amlodipine Besylate (Norvasc) 10 mg DAILY PO Last administered on 05/07/16 08: 41; Admin Dose 10 MG; Start 05/06/16 at 09:00 Lisinopril (Zestril) 20 mg DAILY PO Last administered on 05/07/16 08:41; Admin Dose 20 MG; Start 05/06/16 at 09:00 Hydralazine HCl (Apresoline) 50 mg TID PO Last administered on 05/07/16 08:41 ; Admin Dose 50 MG; Start 05/06/16 at 21:00 AROLDO DIAS May 07, 2016 12:56
--- NOTE | 2016-05-07 14:14 | CARRPT ---
DATE OF PROCEDURE: 05/07/2016 PROCEDURE: Lexiscan Cardiolite stress test electrocardiogram portion. REASON FOR STRESS TESTING: Chest pain, positive troponin, assess for ischemia. ATTENDING PHYSICIAN: Aroldo Lieberman MD REFERRING PHYSICIAN: Sam Hernandez MD BASELINE VITAL SIGNS AND ELECTROCARDIOGRAM: Pulse 93, blood pressure 177/96. Electrocardiogram rev eals normal sinus rhythm, rate of 93, left ventricular hypertrophy by voltage criteria with nonspeci fic ST and T-wave abnormalities. PROCEDURE: The patient underwent standard Lexiscan infusion protocol over 10 seconds followed by ra diolabeled tracer. The patient's test was stopped due to completion of protocol. Maximal achieved blood pressure during the test was 135/97. Maximum achieved heart rate during the test 106. ELECTROCARDIOGRAM FINDINGS: The patient did not develop any new Lexiscan-induced ST or T-wave berger es from baseline abnormalities. Rare PVCs. SYMPTOMS: The patient had no complaints of chest pain or shortness of breath during stress testing. Positive headache and nausea which resolved in recovery. IMPRESSION: 1. No Lexiscan-induced ST or T-wave changes from baseline abnormalities that are diagnostic for car diac ischemia. 2. No complaints of chest pain or shortness of breath during stress testing. 3. Rare premature ventricular contractions during stress test. 4. Report of nuclear images to follow in separate dictation. Dictated By: AROLDO LUCIO/KACIE Conf#: [id number] DID#: [id number] CC: SAM HERNANDEZ MD;*EndCC*
--- NOTE | 2016-05-07 14:44 | RADRPT ---
Vent Rate: 88 bpm RR Interval: 0 msec HI Interval: 190 msec QRS Duration: 88 msec QT Interval: 404 msec QTC Interval: 488 msec P-R-T Humphrey: 37 - 65 - 76 degrees Normal sinus rhythm Left ventricular hypertrophy with repolarization abnormality Abnormal ECG Electronically Signed By: Leo Lieberman [id number]
--- NOTE | 2016-05-07 16:23 | RADRPT ---
PROCEDURE: Nuclear medicine myocardial stress and rest scan. CLINICAL INDICATION: Chest pain. TECHNIQUE: The patient was stressed with 0.4 mg IV Lexiscan. 10.3 mCi technetium 99m Tetrofosmin (Myoview) was administered rest. 30.9 mCi technetium 99m Tetrofosmin (Myoview) was administered du ring stress. Images were obtained and reconstructed in the short axis, horizontal long axis, and ve rtical long axis. Gated images were obtained and ejection fraction was calculated. COMPARISON: No prior study is available for comparison. FINDINGS: The stress and rest images demonstrate normal uptake throughout. There is no fixed abnormality or r eversible abnormality. There is no evidence of transient ischemic dilatation. Wall motion is normal. There is normal wall thickening during systole. Ejection fraction at stress is 50%. IMPRESSION: 1. No evidence of stress induced myocardial ischemia. 2. Ejection fraction at stress is 50%. RPTAT: QQ .Chad Brown MD, MD Date Time Electronically viewed and signed by .Chad Brown MD, on 05/07/2016 16:22 .R/
--- NOTE | 2016-05-07 18:35 | PN ---
Date/Time of Note Date/Time of Note DATE: 05/07/16 TIME: 18:34 Assessment/Plan VTE Prophylaxis VTE Prophylaxis Intervention: other Lines/Catheters IV [facility] PERMA CATH Urinary Cath still in place: No Assessment/Plan Chief Complaint/Hosp Course IMPRESSION: 1. The patient's chest x-ray shows the patient has congestive heart failure. 2. Missed dialysis. 3. Elevated BNP. 4. Hyperkalemia. 5. Leukocytosis. 6. History of hypertension. 7. History of common bile duct stent removal. plan hd PER CARDIO Problems: Subjective 24 Hr Interval Summary Respiratory: no complaints Cardiovascular: no complaints Gastrointestinal: no complaints Exam/Review of Systems Vital Signs Vitals Vital Signs Date Time Temp Pulse Resp B/P Pulse Ox O2 Delivery O2 Flow Rate FiO2 05/07/16 17:01 94 05/07/16 16:24 98.0 19 151/83 100 05/06/16 19:32 Room Air 05/05/16 07:15 40 Intake and Output 05/06/16 05/06/16 05/07/16 15:00 23:00 07:00 Intake Total 300 ml 720 ml Output Total 3300 ml Balance -3000 ml 720 ml Exam Respiratory: clear to auscultation Cardiovascular: regular rate and rhythm Gastrointestinal: soft Results Result Diagram: 05/06/16 0634 05/06/16 0634 Results 24 hrs Laboratory Tests Test 05/06/16 19:47 05/06/16 19:57 05/07/16 07:40 05/07/16 08:24 Bedside Glucose 151 94 Troponin I 0.180 *H 0.146 *H Cholesterol Level 209 H Cholesterol/HDL Ratio 3.5 Creatine Kinase 85 Creatine Kinase Index 1.4 Creatinine Kinase MB (Mass) 1.20 HDL Cholesterol 59 Hemoglobin A1c 5.4 LDL Cholesterol, Calculated 123 Triglycerides Level 135 Test 05/07/16 17:40 Bedside Glucose 89 Medications Medications Current Medications Hydralazine HCl (Apresoline) 20 mg Q6H PRN IV ELEVATED SYSTOLIC BP Last administered on 05/06/16t 05:26; Admin Dose 20 MG; Start 05/05/16 at 13:30 Promethazine HCl/ Dextromethorphan (Phenergan-Dm) 5 ml Q6H PRN PO COUGH; Start 05/05/16 at 19:30 Miscellaneous Information 1 ea NOTE XX ; Start 05/05/16 at 19:30 Glucose (Glutose) 15 gm Q15M PRN PO DECREASED GLUCOSE; Start 05/05/16 at 19:30 Glucose (Glutose) 22.5 gm Q15M PRN PO DECREASED GLUCOSE; Start 05/05/16 at 19:30 Dextrose (D50w Syringe) 25 ml Q15M PRN IV DECREASED GLUCOSE; Start 05/05/16 at 19:30 Dextrose (D50w Syringe) 50 ml Q15M PRN IV DECREASED GLUCOSE; Start 05/05/16 at 19:30 Glucagon (Glucagen) 1 mg Q15M PRN IM DECREASED GLUCOSE; Start 05/05/16 at 19:30 Glucose (Glutose) 15 gm Q15M PRN BUCCAL DECREASED GLUCOSE; Start 05/05/16 at 19: 30 Ondansetron HCl (Zofran Inj) 4 mg Q6H PRN IV NAUSEA AND/OR VOMITING; Start 05/05 at 19:30 Acetaminophen (Tylenol Tab) 650 mg Q6H PRN PO PAIN LEVEL 1-3 OR FEVER; Start at 19:30 Docusate Sodium (Colace) 100 mg Q12H PRN PO CONSTIPATION; Start 05/05/16 at 19: 30 Pantoprazole (Protonix Tab) 40 mg DAILY@06 PO Last administered on 05/06/16 05: 26; Admin Dose 40 MG; Start 05/06/16 at 06:00 Enoxaparin Sodium (Lovenox) 30 mg DAILY SC Last administered on 05/07/16 08:42 ; Admin Dose 30 MG; Start 05/06/16 at 09:00 Amlodipine Besylate (Norvasc) 10 mg DAILY PO Last administered on 05/07/16 08: 41; Admin Dose 10 MG; Start 05/06/16 at 09:00 Lisinopril (Zestril) 20 mg DAILY PO Last administered on 05/07/16 08:41; Admin Dose 20 MG; Start 05/06/16 at 09:00 Hydralazine HCl (Apresoline) 75 mg TID PO Last administered on 05/07/16 15:22 ; Admin Dose 75 MG; Start 05/07/16 at 13:00 KIRK HERNANDEZ MD May 07, 2016 18:34
== END 2016-05-07 19:00 | disposition home or self-care (01) | DRG 291 ==
LOC: E/R 04:54 → MS4 10:54
PROVIDERS: ADMIT Internal Medicine Nephrology; ATTEND Internal Medicine Nephrology
PROC: 5A1D60Z (ICD-10-PCS; principal; 2016-05-05)
DX: I13.2 Hypertensive heart and chronic kidney disease with heart failure and with stage 5 chronic kidney disease, or end stage renal disease (principal); N18.6 End stage renal disease; E87.1 Hypo-osmolality and hyponatremia; I16.1 Hypertensive emergency; D64.9 Anemia, unspecified; E11.9 Type 2 diabetes mellitus without complications; I50.43 Acute on chronic combined systolic (congestive) and diastolic (congestive) heart failure; E87.5 Hyperkalemia; Z99.2 Dependence on renal dialysis
CPT/HCPCS: 36415; 36600; 71010; 71020; 78452; 80048; 80053; 80061; 82150; 82550; 82553; 82803; 82962; 83036; 83690; 83880; 84484; 85025; 85610; 85730; 90935; 93005; 93017; 93306; 94660; 94664; 96365; 96375; A9500; A9505; J0360; J0610; J1650; J2785

== ENCOUNTER 2016-05-16 05:37 | Observation (INO) | payer OTHER ==
[2016-05-16] VITALS (14 sets, daily range): BP systolic 113–218; BP diastolic 60–81; PULSE 75–88; RESP 18–20; Ht 160 cm; Wt 57.1 kg
[~2016-05-16] VITALS: Ht 160 cm; Wt 57.1 kg
[~2016-05-16 05:37] MED LIST changes: -D-ME473S2 PO; +HYDR-3671 PO
--- NOTE | 2016-05-16 06:50 | ERA ---
ER Documentation Chief Complaint Date/Time DATE: 05/16/16 TIME: 06:46 Chief Complaint Shortness of Breath HPI Patient is a 65-year-old female who presents with 12 hours of shortness of breath. Patient reports that shortness of breath is worse when lying down flat. Patient denies chest or back pain. Patient has noted that her blood pressure has been significantly elevated. She has a nonproductive cough, no fever. Patient states that she had similar symptoms prior to an admission approximately week and a half ago. During that time she is found to have volume overload and hyperkalemia. Patient denies headache, weakness, dizziness. Last dialysis was 2 days ago. Patient states that she is compliant with all medications. ROS All systems reviewed and are negative except as per history of present illness. Medications Home Meds Active Scripts Hydralazine Hcl* (Hydralazine Hcl*) 25 Mg Tab, 25 MG PO TID for 28 Days, TAB Prov:KIRK HERNANDEZ MD 05/06/16 Reported Medications Glipizide* (Glipizide*) 5 Mg Tablet, 2.5 MG PO AC BREAKFAST LUNCH, TAB 04/27/16 Amlodipine Besylate* (Amlodipine Besylate*) 10 Mg Tablet, 10 MG PO DAILY, #30 TAB 04/27/16 Lisinopril* (Lisinopril*) 20 Mg Tablet, 20 MG PO DAILY, #30 TAB 04/27/16 Allergies Allergies: Coded Allergies: Insulins (Verified Allergy, Unknown, 05/05/16) Penicillins (Verified Allergy, Unknown, 05/05/16) morphine (Verified Allergy, Unknown, 05/05/16) PMhx/Soc Past medical history: Diabetes mellitus, ESRD, hypertension Past surgical history: Cholecystectomy, biliary stent Social history: Denies tobacco or alcohol History of Surgery: Yes (tubal ligation, cholecystectomy, hysterectomy) Anesthesia Reaction: No Hx Neurological Disorder: No Hx Respiratory Disorders: No Hx Cardiac Disorders: No Hx Psychiatric Problems: No Hx Miscellaneous Medical Probl: No Hx Alcohol Use: No Hx Substance Use: No Hx Tobacco Use: No FmHx Family History: diabetes, No coronary disease Physical Exam Vitals Vital Signs Date Time Temp Pulse Resp B/P Pulse Ox O2 Delivery O2 Flow Rate FiO2 05/16/16 09:11 79 169/78 05/16/16 08:13 79 16 176/96 100 Nasal Cannula 2.0 05/16/16 07:36 74 20 186/101 100 Nasal Cannula 2.0 05/16/16 07:30 Nasal Cannula 2.0 05/16/16 05:45 96.8 92 28 228/125 97 Physical Exam Const: Alert, oriented, mildly anxious Head: Atraumatic Eyes: Normal Conjunctiva, no pallor or icterus ENT: Normal External Ears, Nose and Mouth. Neck: Full range of motion. No significant JVD, no meningismus. Resp: Bibasilar rales, no wheezes or rhonchi Cardio: Regular rate and rhythm, no murmurs Abd: Soft, non tender, non distended. Normal bowel sounds Skin: No petechiae or rashes Back: No midline or flank tenderness Ext: No cyanosis, or edema Neur: Awake and alert Psych: Normal Mood and Affect Result Diagram: 05/16/16 0730 05/16/16 0730 Results 24 hrs Laboratory Tests Test 05/16/16 07:30 Anion Gap 18 B-Type Natriuretic Peptide 92587IQ/ML Basophils # 0.010^3/ul Basophils % 0.5% Blood Urea Nitrogen 58mg/dl Calcium Level 8.1mg/dl Carbon Dioxide Level 24mmol/L Chloride Level 96mmol/L Creatinine 5.59mg/dl Eosinophils # 0.210^3/ul Eosinophils % 2.6% Glucose Level 95mg/dl Hematocrit 33.3% Hemoglobin 11.3g/dl Lymphocytes # 3.510^3/ul Lymphocytes % 40.9% Mean Corpuscular Hemoglobin 30.1pg Mean Corpuscular Hemoglobin Concent 33.9g/dl Mean Corpuscular Volume 88.8fl Mean Platelet Volume 10.1fl Monocytes # 0.710^3/ul Monocytes % 8.3% Neutrophils # 4.110^3/ul Neutrophils % 47.6% Nucleated Red Blood Cells # 0.010^3/ul Nucleated Red Blood Cells % 0.0/100WBC Platelet Count 55805^3/UL Potassium Level 6.4mmol/L Red Blood Count 3.7510^6/ul Red Cell Distribution Width 15.8% Sodium Level 132mmol/L Troponin I 0.034ng/ml White Blood Count 8.610^3/ul Current Medications Medications (Trade) Dose Ordered Sig/Marcus Route PRN Reason Start Time Stop Time Status Last Admin Dose Admin Hydralazine HCl (Apresoline) 10 mg ONCE ONCE IV 05/16/16 07:00 05/16/16 07:01 DC 05/16/16 07:00 Sodium Polystyrene Sulfonate (Kayexalate) 30 gm ONCE ONCE PO 05/16/16 09:30 05/16/16 09:31 DC Ondansetron HCl (Zofran Inj) 4 mg ER BRIDGE PRN IV NAUSEA AND/OR VOMITING 05/16/16 09:30 05/17/16 09:29 Acetaminophen (Tylenol Tab) 650 mg ER BRIDGE PRN PO MILD PAIN/FEVER 05/16/16 09:30 05/17/16 09:29 Procedures/MDM EKG: Time 655, rate 79, normal sinus rhythm, normal axis and intervals, left ventricular hypertrophy, nonspecific ST-T wave changes do not appear ischemic, no ectopy CXR: IMPRESSION: 1. Right internal jugular tunneled hemodialysis catheter. 2. Mild cardiomegaly. 3. Lfua-ao-saidooxa pulmonary vascular congestion/volume overload. MDM: Patient is a 65-year-old female with end-stage renal disease and hypertension, who presents with shortness of breath and orthopnea. Appears volume overloaded on chest x-ray, has elevated BNP. No signs of coronary ischemia. Patient does have elevated potassium of 6.4. Patient will need additional dialysis. Given dose of Kayexalate for hyperkalemia without EKG changes. Patient was initially severely hypertensive with a systolic blood pressure of greater than 220, but responded well to single dose of p.o. hydralazine. No evidence of respiratory distress. Discussed with Dr. Hernandez who will admit to observation for further workup and treatment. Departure Diagnosis: Primary Impression: Hyperkalemia Additional Impressions: Volume overload ESRD (end stage renal disease) Hypertension Condition: MONA Hensley May 16, 2016 06:50
[2016-05-16] MEDS ORDERED: hydrALAzine 20 MG INJ IV ONE (07:00)
--- NOTE | 2016-05-16 07:44 | RADRPT ---
PROCEDURE: CHEST - 1 VIEW CLINICAL INDICATION: 65-year-old female with shortness of breath. TECHNIQUE: A single frontal AP view of the chest was performed portably. The images were reviewed on a PACS workstation. COMPARISON: Chest x-ray May 06, 2016. FINDINGS: There is a right internal jugular tunneled hemodialysis catheter the tip at the cavoatrial junction region. The cardiomediastinal silhouette is mildly enlarged. The thoracic aortic arch is calcified . There is miux-lw-ukkalmtk pulmonary vascular congestion/volume overload. There is no evidence for focal consolidation. There is no evidence for pneumothorax. The osseous structures are intact. IMPRESSION: 1. Right internal jugular tunneled hemodialysis catheter. 2. Mild cardiomegaly. 3. Uizb-jv-zxjdnsff pulmonary vascular congestion/volume overload. .Vince Heart MD, Date Time Electronically viewed and signed by .Vince Heart MD, on 05/16/2016 07:44 .M/
[2016-05-16 07:46] LABS: ADD SCAN DIFF NO
[2016-05-16 07:49] LABS: BASOPHILS % 0.5 % (0.0-2.0); EOSINOPHILS # 0.2 10^3/ul (0.0-0.5); EOSINOPHILS % 2.6 % (0.0-7.0); HEMATOCRIT 33.3 % (37.0-47.0); HEMOGLOBIN 11.3 g/dl (12.0-16.0); LYMPHOCYTES # 3.5 10^3/ul (0.8-2.9); LYMPHOCYTES % 40.9 % (15.0-51.0); MEAN CORPUSCULAR HEMOGLOBIN 30.1 pg (29.0-33.0); MEAN CORPUSCULAR HGB CONC 33.9 g/dl (32.0-37.0); MEAN CORPUSCULAR VOLUME 88.8 fl (82.0-101.0); MEAN PLATELET VOLUME 10.1 fl (7.4-10.4); MONOCYTE # 0.7 10^3/ul (0.3-0.9); MONOCYTES % 8.3 % (0.0-11.0); NEUTROPHIL # 4.1 10^3/ul (1.6-7.5); NEUTROPHILS % 47.6 % (39.0-77.0); PLATELET COUNT 355 10^3/UL (140-415); RED BLOOD COUNT 3.75 10^6/ul (4.20-5.40); RED CELL DISTRIBUTION WIDTH 15.8 % (11.5-14.5); WHITE BLOOD COUNT 8.6 10^3/ul (4.8-10.8)
[2016-05-16 08:06] LABS: CREATININE 5.59 mg/dl (0.44-1.00)
[2016-05-16 08:07] LABS: CALCIUM 8.1 mg/dl (8.4-10.2)
[2016-05-16 08:18] LABS: TROPONIN-I 0.034 ng/ml (0.00-0.12)
[2016-05-16 08:22] LABS: POTASSIUM 6.4 mmol/L (3.5-5.1)
[2016-05-16] MEDS ORDERED: NA POLYST SULFON 15 GM/60 ML BTL PO ONE (09:30)
[2016-05-16] MEDS ORDERED: ONDANSETRON 4 MG INJ IV PRN (09:30)
[2016-05-16] MEDS ORDERED: ACETAMINOPHEN 325 MG TAB PO PRN ×2 (09:30→15:00)
[2016-05-16] MEDS ORDERED: DOCUSATE SODIUM 100 MG CAP PO PRN (15:00)
[2016-05-16] MEDS ORDERED: ZOLPIDEM 5 MG TAB PO PRN (15:00)
[2016-05-16] MEDS ORDERED: NACL 0.9% 3 ML SYG IV SCH (15:00)
[2016-05-16] MEDS: ACCU-CHEK XX SCH ×2 (17:35→21:56)
[2016-05-16] MEDS: hydrALAzine 20 MG INJ IV PRN (17:40)
--- NOTE | 2016-05-16 23:14 | QN ---
Documentation Comment [id number] KIRK HERNANDEZ MD May 16, 2016 23:14
[2016-05-17] VITALS (21 sets, daily range): BP systolic 117–175; BP diastolic 68–95; PULSE 76–102; RESP 18–20
--- NOTE | 2016-05-17 04:38 | HP ---
DATE OF ADMISSION: 05/16/2016 HISTORY OF PRESENT ILLNESS: The patient is an elderly female with history of ESRD, hypertension, hi story of common bile duct stone removal, who presented with shortness of breath, noted to have hyper kalemia, lung congestion, and is being admitted for further management. PAST MEDICAL HISTORY: Positive for hypertension, diabetes, history of cholecystectomy, history of c ommon bile duct stone removal in the past. ALLERGY HISTORY: 1. INSULIN, THE PATIENT IS NOT SURE. 2. PENICILLIN. SOCIAL HISTORY: Negative. MEDICATION HISTORY: The patient is on 1. Amlodipine. 2. Glipizide. 3. Hydralazine. 4. Lisinopril. REVIEW OF SYSTEMS: HEENT: Unremarkable. RESPIRATORY: Short of breath. CARDIOVASCULAR: No chest pain or palpitations. ABDOMEN: No dyspepsia. EXTREMITIES: Swelling. PHYSICAL EXAMINATION: GENERAL: The patient is awake, alert. Mild shortness of breath. VITAL SIGNS: Pulse 85, blood pressure 140/69. HEAD: Atraumatic, normocephalic. Pupils equal, reactive. NECK: Supple, no JVD. LUNGS: Clear anteriorly with basilar rales. CARDIOVASCULAR: S1, S2 are normal. ABDOMEN: Soft, nontender. Bowel sounds present. No palpable mass or hepatosplenomegaly. No guard ing, rebound tenderness. EXTREMITIES: There is no cyanosis, clubbing, or edema. CENTRAL NERVOUS SYSTEM: The patient is awake, alert. No focal deficit. The patient has a right chest PermCath noted for dialysis. LABORATORY DATA: Hematocrit 33.3. Sodium 136, potassium 6.4. Chest x-ray shows cardiomegaly. IMPRESSION: The patient has shortness of breath, pulmonary edema, hyperkalemia, ESRD, hypertension, anemia, history of cholecystectomy, and ____. PLAN: Control blood pressure and renal diet. The patient will be getting hemodialysis. Sliding sc laly coverage since the patient claims that she is allergic to insulin. Laboratory data will be obta ined as well in the morning. Orders were done. The patient's family was informed of the patient's condition. Dictated By: KIRK HERNANDEZ MD BS/NTS Conf#: [id number] DID#: [id number]
[2016-05-17] MEDS: hydrALAzine 20 MG INJ IV PRN (05:50)
[2016-05-17] MEDS ORDERED: GLUCOSE GEL 15 GRAM TUBE PO PRN ×2 (07:00)
[2016-05-17] MEDS ORDERED: GLUCAGON 1 MG INJ IM PRN (07:00)
[2016-05-17] MEDS ORDERED: GLUCOSE GEL 15 GRAM TUBE BUCCAL PRN (07:00)
[2016-05-17] MEDS ORDERED: DEXTROSE 50% 50 ML SYRINGE IV PRN ×2 (07:00)
[2016-05-17] MEDS: ACCU-CHEK XX SCH ×3 (07:30→17:10)
[2016-05-17] MEDS: glipiZIDE 5 MG TAB PO SCH ×2 (07:32→11:15)
[2016-05-17 08:06] LABS: POTASSIUM 4.4 mmol/L (3.5-5.1)
[2016-05-17 08:09] LABS: CALCIUM 8.1 mg/dl (8.4-10.2); CREATININE 4.54 mg/dl (0.44-1.00)
[2016-05-17] MEDS ORDERED: LISINOPRIL 20 MG TAB PO SCH (09:00)
[2016-05-17] MEDS ORDERED: AMLODIPINE 10 MG TAB PO SCH (09:00)
[2016-05-17] MEDS ORDERED: HEPARIN 1000 UNITS/ML 10 ML INJ CATHETER SCH (12:00)
--- NOTE | 2016-05-17 15:19 | PDOCDIS ---
Discharge Instructions CONDITION Patient Condition: Stable HOME CARE INSTRUCTIONS: Special Diet: carb controlled ACTIVITY: Activity Restrictions: Slowly Increase Activity FOLLOW UP/APPOINTMENTS Appointments f/u pcp 1 wk KIRK HERNANDEZ MD May 17, 2016 15:19
--- NOTE | 2016-05-17 17:04 | PN ---
Date/Time of Note Date/Time of Note DATE: 05/17/16 TIME: 17:03 Assessment/Plan VTE Prophylaxis VTE Prophylaxis Intervention: other Lines/Catheters [facility] PERMACATH Urinary Cath still in place: No Assessment/Plan Chief Complaint/Hosp Course IMPRESSION: The patient has shortness of breath, pulmonary edema, hyperkalemia , ESRD, hypertension, anemia, history of cholecystectomy, PLAN HD,HOME Problems: Subjective 24 Hr Interval Summary Respiratory: no complaints Cardiovascular: no complaints Exam/Review of Systems Vital Signs Vitals Vital Signs Date Time Temp Pulse Resp B/P Pulse Ox O2 Delivery O2 Flow Rate FiO2 05/17/16 16:18 148/70 05/17/16 16:14 91 05/17/16 15:49 98.7 20 96 05/17/16 05:00 Room Air 05/16/16 10:50 2.0 Intake and Output 05/16/16 05/16/16 05/17/16 15:00 23:00 07:00 Intake Total 500 ml 300 ml Output Total 2000 ml Balance -1500 ml 300 ml Exam Respiratory: clear to auscultation Cardiovascular: regular rate and rhythm Gastrointestinal: soft Results Result Diagram: 05/16/16 0730 05/17/16 0716 Results 24 hrs Laboratory Tests Test 05/16/16 17:25 05/16/16 21:56 05/17/16 07:16 05/17/16 07:30 Bedside Glucose 103 135 101 Anion Gap 14 Blood Urea Nitrogen 31 #H Calcium Level 8.1 L Carbon Dioxide Level 30 Chloride Level 96 L Creatinine 4.54 #H Glucose Level 90 Potassium Level 4.4 # Sodium Level 136 Test 05/17/16 11:16 Bedside Glucose 157 Medications Medications Current Medications Amlodipine Besylate (Norvasc) 10 mg DAILY PO Last administered on 05/17/16 09: 36; Admin Dose 10 MG; Start 05/17/16 at 09:00 Hydralazine HCl (Apresoline) 25 mg TID PO Last administered on 05/17/16 09:36 ; Admin Dose 25 MG; Start 05/16/16 at 21:00 Lisinopril (Zestril) 20 mg DAILY PO Last administered on 05/17/16 09:37; Admin Dose 20 MG; Start 05/17/16 at 09:00 Acetaminophen (Tylenol Tab) 650 mg Q6H PRN PO PAIN LEVEL 1-3 OR FEVER; Start at 15:00 Docusate Sodium (Colace) 100 mg Q12H PRN PO CONSTIPATION; Start 05/16/16 at 15: 00 Zolpidem Tartrate (Ambien) 5 mg QHS PRN PO SLEEP Last administered on 01:09; Admin Dose 5 MG; Start 05/16/16 at 15:00 Hydralazine HCl (Apresoline) 10 mg Q6H PRN IV sbp over 170 Last administered on 05/17/16 05:50; Admin Dose 10 MG; Start 05/16/16 at 17:23 Miscellaneous Information 1 ea NOTE XX ; Start 05/17/16 at 07:00 Glucose (Glutose) 15 gm Q15M PRN PO DECREASED GLUCOSE; Start 05/17/16 at 07:00 Glucose (Glutose) 22.5 gm Q15M PRN PO DECREASED GLUCOSE; Start 05/17/16 at 07: 00 Dextrose (D50w Syringe) 25 ml Q15M PRN IV DECREASED GLUCOSE; Start 05/17/16 at 07:00 Dextrose (D50w Syringe) 50 ml Q15M PRN IV DECREASED GLUCOSE; Start 05/17/16 at 07:00 Glucagon (Glucagen) 1 mg Q15M PRN IM DECREASED GLUCOSE; Start 05/17/16 at 07:00 Glucose (Glutose) 15 gm Q15M PRN BUCCAL DECREASED GLUCOSE; Start 05/17/16 at 07 :00 KIRK HERNANDEZ MD May 17, 2016 17:03
== END 2016-05-17 17:00 | disposition home or self-care (01) ==
LOC: E/R 05:37 → MS4 09:13
PROVIDERS: ADMIT Internal Medicine Nephrology; ATTEND Internal Medicine Nephrology
DX: E87.5 Hyperkalemia (principal); I12.0 Hypertensive chronic kidney disease with stage 5 chronic kidney disease or end stage renal disease; N18.6 End stage renal disease; Z99.2 Dependence on renal dialysis; Z79.84 Long term (current) use of oral hypoglycemic drugs; E11.22 Type 2 diabetes mellitus with diabetic chronic kidney disease; J81.1 Chronic pulmonary edema; D64.9 Anemia, unspecified; Z88.6 Allergy status to analgesic agent; Z88.0 Allergy status to penicillin; Z88.8 Allergy status to other drugs, medicaments and biological substances; Z98.51 Tubal ligation status; Z90.49 Acquired absence of other specified parts of digestive tract; Z90.710 Acquired absence of both cervix and uterus
CPT/HCPCS: 36415; 71010; 80048; 82962; 83880; 84484; 85025; 87081; 90935; 93005; 96374; 96375; J0360; J1644; Z7500; Z7502; Z7610; G0378

== ENCOUNTER 2018-01-25 09:09 | Emergency (ER) | END 2018-01-25 11:52 | disposition home or self-care (01) ==

== ENCOUNTER 2018-07-08 07:25 | Inpatient (IN) | payer MEDICARE, OTHER ==
[~2018-07-08] VITALS: Ht 157.5 cm; Wt 59.2 kg
[~2018-07-08 07:25] MED LIST changes: +ACET500C5 PO; +LISI-471 PO; -LISI20TA11 PO
--- NOTE | 2018-07-08 07:47 | ERD ---
ER Documentation Chief Complaint Chief Complaint pt is bib son with c/o sob since dialysis on Tuesday HPI 67-year-old female history of hypertension, hyperlipidemia, end-stage renal disease on dialysis Tuesday/Tuesday/Tuesday presents the ED for evaluation of a 1 day history of shortness of breath and fever. After returning home from her regularly scheduled dialysis began experiencing fevers up to 101 F, increasing shortness of breath and cough. Symptoms have been worsening throughout the night. Denies chest pain or palpitations. No leg pain or swelling. No ab dominal pain, nausea vomiting. No rhinorrhea or odynophagia. No headache or neck pain. No ill contacts or recent travel. ROS All systems reviewed and are negative except as per history of present illness. Medications Home Meds Reported Medications Amlodipine Besylate* (Amlodipine Besylate*) 10 Mg Tablet, 10 MG PO BID, #30 TAB 07/08/18 Omeprazole* (Omeprazole*) 20 Mg Capsule.dr, 20 MG PO DAILY, #30 CAP 07/08/18 Simvastatin* (Zocor*) 10 Mg Tablet, 10 MG PO QHS, #30 TAB 07/08/18 Lisinopril* (Lisinopril*) 40 Mg Tablet, 40 MG PO DAILY, #30 TAB 07/08/18 Discontinued Reported Medications Glipizide* (Glipizide*) 5 Mg Tablet, 2.5 MG PO AC BREAKFAST LUNCH, TAB 04/27/16 Amlodipine Besylate* (Amlodipine Besylate*) 10 Mg Tablet, 10 MG PO DAILY, #30 TAB 04/27/16 Lisinopril* (Lisinopril*) 20 Mg Tablet, 20 MG PO DAILY, #30 TAB 04/27/16 Discontinued Scripts Acetaminophen* (Tylophen*) 500 Mg Capsule, 1 CAP PO Q6H PRN for PAIN AND OR ELEVATED TEMP, #20 CAP Prov:CAROLINA MUHAMMAD PA-C 01/25/18 Hydralazine Hcl* (Hydralazine Hcl*) 25 Mg Tab, 25 MG PO TID for 28 Days, TAB Prov:KIRK HERNANDEZ MD 05/06/16 Allergies Allergies: Coded Allergies: Insulins (Verified Allergy, Unknown, 07/08/18) Penicillins (Verified Allergy, Unknown, 07/08/18) morphine (Verified Allergy, Unknown, 07/08/18) PMhx/Soc Reviewed in chart. As per HPI. History of Surgery: Yes (CHOLECYSYECTOMY, TUBAL LIGATION, HYSTERECTOMY, BILIARY STENT) Anesthesia Reaction: No Hx Neurological Disorder: No Hx Respiratory Disorders: No Hx Cardiac Disorders: Yes (HYPERTENSION) Hx Psychiatric Problems: No Hx Miscellaneous Medical Probl: No Hx Alcohol Use: No Hx Substance Use: No Hx Tobacco Use: No FmHx No family history relevant to presenting complaint Physical Exam Vitals Temp: 99.2. Pulse: 102. Respirations: 28. Blood pressure 190/88. O2 saturation 83% on room air. Physical Exam Const: Alert, moderate respiratory distress Head: Atraumatic Eyes: Pupils equal react to light, extraocular wounds are intact. Normal Conjunctiva ENT: Normal External Ears, Nose and Mouth. Neck: Full range of motion. JVD. Nontender. No meningismus. Resp: Tachypneic. Breath sounds diminished bilaterally with crackles at the bases and rare expiratory wheezing. Cardio: Tachycardic. Regular rate and rhythm, no murmurs Abd: Soft, obese, non tender, non distended. No rebound or guarding normal bowel sounds Skin: No petechiae or rashes Back: No midline or flank tenderness Ext: No cyanosis, or edema. Left upper extremity AV shunt with palpable thrill Neur: Awake and alert. No focal deficit observed. Psych: Anxious but not depressed. Results 24 hrs Laboratory Tests Test 07/08/18 07:43 07/08/18 07:55 07/08/18 08:04 POC Venous Lactate 1.3 mmol/L Hepatitis B Surface Antigen NEGATIVE White Blood Count 9.8 10^3/ul Red Blood Count 3.48 10^6/ul Hemoglobin 10.5 g/dl Hematocrit 32.4 % Mean Corpuscular Volume 93.1 fl Mean Corpuscular Hemoglobin 30.2 pg Mean Corpuscular 32.4 g/dl Hemoglobin Concent Red Cell Distribution Width 14.8 % Platelet Count 228 10^3/UL Mean Platelet Volume 10.8 fl Immature Granulocytes % 0.200 % Neutrophils % 66.7 % Lymphocytes % 24.4 % Monocytes % 7.9 % Eosinophils % 0.4 % Basophils % 0.4 % Nucleated Red Blood Cells % 0.0 /100WBC Immature Granulocytes # 0.020 10^3/ul Neutrophils # 6.6 10^3/ul Lymphocytes # 2.4 10^3/ul Monocytes # 0.8 10^3/ul Eosinophils # 0.0 10^3/ul Basophils # 0.0 10^3/ul Nucleated Red Blood Cells # 0.0 10^3/ul Prothrombin Time 14.1 Sec Prothrombin Time Ratio 1.1 INR International Normalized Ratio 1.08 Activated Partial Thromboplast 29.7 Sec Time Sodium Level 137 mmol/L Potassium Level 5.4 mmol/L Chloride Level 92 mmol/L Carbon Dioxide Level 29 mmol/L Anion Gap 16 Blood Urea Nitrogen 47 mg/dl Creatinine 7.34 mg/dl Est Glomerular Filtrat Rate mL/min 6 mL/min Glucose Level 161 mg/dl Calcium Level 9.9 mg/dl Total Bilirubin 0.5 mg/dl Direct Bilirubin 0.00 mg/dl Indirect Bilirubin 0.5 mg/dl Aspartate Amino Transf (AST/SGOT) 48 IU/L Alanine 16 IU/L Aminotransferase (ALT/SGPT) Alkaline Phosphatase 366 IU/L Troponin I 0.174 ng/ml Total Protein 8.9 g/dl Albumin 4.5 g/dl Globulin 4.40 g/dl Albumin/Globulin Ratio 1.02 Current Medications Medications Dose Sig/Marcus Start Time Status Last (Trade) Ordered Route PRN Stop Time Admin Dose Reason Admin Vancomycin 250 ml @ ONCE STAT 07/08/18 DC 07/08/18 HCl 125 mls/hr IVPB 09:10 11:30 07/08/18 11:09 150 ml @ ONCE STAT 07/08/18 DC 07/08/18 Levofloxacin/ 100 mls/hr IVPB 09:10 09:28 Dextrose 07/08/18 10:39 Aspirin 325 mg ONCE ONCE 07/08/18 DC 07/08/18 (Aspirin) PO 09:30 09:37 07/08/18 09:31 1 inch ONCE ONCE 07/08/18 DC 07/08/18 Nitroglycerin TD 09:30 09:37 07/08/18 09:31 (Nitroglyceri n 2% Oint) Procedures/MDM DOCUMENTS REVIEWED: ED nurse, prior ED, prior records EKG: Time: 0 818. Sinus rhythm. Ventricular rate 93. Normal [place] QRS. LVH. Nonspecific ST-T wave changes. No ectopy. My Interpretation IMAGING: PROCEDURE: XR Chest. CLINICAL INDICATION: Sepsis TECHNIQUE: AP semi upright chest was obtained. COMPARISON: Chest 05/16/2016 FINDINGS: The heart is mildly enlarged. Interval removal of right central venous catheter. No pneumothorax. There is diffuse bilateral perivascular wall indistinctness. Mild pulmonary vascular congestion. Rule out mild congestive heart failure and interstitial pulmonary edema. Bilateral mild perihilar and infrahilar patchy densities that may represent pulmonary edema however inflammatory infiltrates cannot be excluded. No gross pleural effusions. The bones are osteopenic para IMPRESSION: 1. Mild cardiomegaly, mild pulmonary vascular congestion and perivascular wall indistinctness and rule out congestive heart failure and interstitial pulmonary edema. 2. Bilateral perihilar and infrahilar patchy densities may represent pulmonary edema however inflammatory infiltrates cannot be excluded. RPTAT:AAJJ Physician Katherine Date Time Electronically viewed and signed by Physician Katherine on 07/08/2018 08:22 BM/ MEDICAL DECISION MAKIN-year-old female history of hypertension, hyperlipidemia, end-stage renal disease on dialysis Tuesday/Tuesday/Tuesday presents the ED for evaluation of a 1 day history of shortness of breath and fever. CBC significant for anemia consistent with prior results but no leukocytosis or thrombocytopenia. Chemistry reveals elevated BUN and creatinine consistent with the patient's history of end-stage renal disease with borderline elevated potassium of 5.4 mg/L but no hyperglycemia. EKG negative for acute ischemic changes or dysrhythmia. Troponin is elevated at 0.174 consistent with NSTEMI although renal leak is also considered and aspirin was given but anticoagulation deferred. Chest x-ray findings consistent with volume overload and pulmonary edema although pneumonia is also possible and antibiotics administered after cultures. Criteria for systemic inflammatory response syndrome include tachycardia and tachypnea. Lactate is 1.3 mmol/L. On arrival patient was significant hypoxic with O2 saturation of 83% improved on s upplemental oxygen. Although the patient was dialyzed yesterday x-ray is consistent with volume overload which improved with preload reduction but will need urgent dialysis which will be arranged by nephrology, Dr. Armstrong. Patient's cardiovascular, respiratory and infectious symptoms have not stabilized, and the patient is at risk of rapid decompensation. The patient will be admitted to telemetry for cardiac risk stratification, antibiotic therapy, infectious source control, further evaluation and management. SEPSIS DOCUMENTATION: SIRS criteria: Tachycardia and tachypnea. Severe Sepsis Criteria: Infectious source: Pneumonia End organ damage indicated by: Acute Resp Failure (sat < 92% w/o oxygen) Sepsis Management: Time of recognition of severe sepsis: 07:45 Within 3 hours of recognition: Blood cultures x 2 before broad-spectrum antibiotics: Yes 30 ml/kg NS bolus not given as patient has end-stage renal disease on dialysis and is already volume overloaded with radiographic findings of pulmonary edema Initial lactate 1.3 mmol/L Repeat lactate Not indicated as initial lactate < 2.0 Septic Shock Assessment: Any lactic acid > 4.0: No Persistent hypotension (SBP < 90 or 40 mmHg drop, MAP < 65) despite 30 mL/kg IV fluid bolus: No Persistent Hypotension: None Comfort care: No Central line: Not indicated Accepting Care Team Admitting Physician: Dr Maria Alejandra Perez Time: 10:15 CONSULTANTS: Nephrology, Dr. Armstrong. Evaluated patient in the ED. Will arrange for urgent dialysis Critical Care Time: 35 minutes Treatments/Evaluations: Due to the high probability of imminent, clinically significant deterioration this patient with acute hypoxic respiratory failure and severe sepsis due to pneumonia required close monitoring and treatment of unstable vital signs, cardiorespiratory,and neurologic status, while maintaining tight balance of fluid, respiratory and cardiac interventions. This includes the administration immediate and broad-spectrum antibiotic therapy, while performing a simultaneous assessment for possible sources in order to direct targeted therapy. This time includes discussing the case with the patient and the patients family. This time also includes the consideration for invasive and chemical support to prevent cardiopulmonary collapse. This time does not include all procedures stated elsewhere in this record. This time also includes reviewing old records, labs and radiological studies. This time includes examining and re-examining the patient. Additionally, this time also includes arranging care with admitting and consulting physicians. Counseled patient and family regarding diagnosis, diagnostic results and plan for admission. Departure Diagnosis: Primary Impression: Acute dyspnea Additional Impressions: Acute respiratory failure with hypoxia Pulmonary edema Chronicity: acute Qualified Codes: J81.0 - Acute pulmonary edema Pneumonia Pneumonia type: due to unspecified organism Laterality: bilateral Lung location: unspecified part of lung Qualified Codes: J18.9 - Pneumonia, unspecified organism NSTEMI (non-ST elevated myocardial infarction) Severe sepsis SIRS (systemic inflammatory response syndrome) Condition: Serious VIJAY LUTZ MD July 08, 2018 07:47
[2018-07-08] MEDS ORDERED: LEVOFLOXACIN 750MG/D5W (PMX) 150 ML IVPB STA (09:10)
[2018-07-08] MEDS ORDERED: VANCOMYCIN 1 GM (PMX) 250 ML IVPB STA (09:10)
[2018-07-08] MEDS ORDERED: ASPIRIN 325 MG TAB PO ONE (09:30)
[2018-07-08] MEDS ORDERED: NITROGLYCERIN 2% 1 GM OINT PKT TD ONE (09:30)
[2018-07-08] MEDS ORDERED: LISI40TA3 PO (10:23)
[2018-07-08] MEDS ORDERED: OMEP20CA16 PO (10:24)
[2018-07-08] MEDS ORDERED: SIMV10TA PO (10:24)
[2018-07-08] MEDS ORDERED: AMLO-147 PO (10:25)
[2018-07-08] MEDS ORDERED: ONDANSETRON 4 MG INJ IV PRN ×2 (10:30→11:00)
[2018-07-08] MEDS ORDERED: ACETAMINOPHEN 325 MG TAB PO PRN ×2 (10:30→11:00)
[2018-07-08] MEDS ORDERED: morphine 2 MG INJ IV PRN (11:00)
[2018-07-08] MEDS ORDERED: LABETALOL HCL 20MG INJ IV PRN (11:00)
[2018-07-08] MEDS ORDERED: NACL 0.9% 3 ML SYG IV SCH (11:00)
[2018-07-08] MEDS ORDERED: HYDROCODONE/APAP (5/325) TAB PO PRN (11:00)
[2018-07-08] MEDS ORDERED: ALBUTEROL/IPRATROPIUM (NEB) 3 ML AMP HHN PRN (11:00)
[2018-07-08] MEDS ORDERED: NITROGLYCERIN (SL) 0.4 MG TAB SL PRN (11:00)
--- NOTE | 2018-07-08 13:58 | HP ---
Date/Time of Note Date/Time of Note DATE: 07/08/18 TIME: 13:57 Assessment/Plan VTE Prophylaxis Pharmacological prophylaxis: other Lines/Catheters IV Catheter Type (from Nrsg): Saline Lock Assessment/Plan Hospital Course Patient is a female with a past medical history significant for chronic anemia, hypertension, dyslipidemia, GERD, end-stage renal disease on dialysis who presents to [facility] for 24 hours of worsening cough, chest pain, shortness of breath as well as fever. According to patient and patient's sons at bedside, patient received dialysis per usual yesterday however immediate above upon returning home felt feverish with cough and some weakness. Patient states that she continued to be feverish throughout the night with cough and chest pain that was present regardless of cough or not. Currently patient states that after the intervention in the ED and supplemental oxygen she feels much better. Chest pain has resolved, shortness of breath has resolved, as well as fever. Patient currently denies abdominal pain, nausea, vomiting, bowel or bladder dysfunction, leg pain. Patient also denies any vision changes, dizziness, syncope, headache. Objective Physical exam General: Patient is laying in bed and answers questions appropriately Mentation: Patient is alert and oriented 4, Head: Normocephalic atraumatic Eyes: EOMI, pupils reactive to light Neck: Supple, nontender, midline Respiratory: Coarse to auscultation bilaterally Cardiovascular: regular rate, no obvious murmurs Gastrointestinal: non-tender to palpation, bowel sounds heard. Neurological: Moves all extremities spontaneously Skin: No new skin lesions Assessment and plan Acute hypoxic respiratory failure -Likely secondary to pulmonary edema versus pneumonia -Nebulizers and treatment of above Pneumonia -Chest x-ray showing edema versus pneumonia, coupled with history of overnight fevers likely pneumonia -IV antibiotic, needs healthcare acquired coverage, continue cefepime End-stage renal disease on hemodialysis -Patient's open soaper tender consulted, dialyze as needed NSTEMI, mild,Chest pain resolved -Rule out ACS -Mild troponin elevation -Cardiology consulted -Continue to trend troponins -No more chest pain -EKG noted, echo Electrolyte derangement -Secondary to above end-stage renal failure -Nephrology on board Hypertensive urgency -Treat as needed -Secondary to above shortness of breath as well as chest pain likely, returning to normal -Treat as needed Dyslipidemia -Continue home meds GERD -Continue home meds Disposition -Patient likely has pneumonia, however will need to rule out ACS, cardiology recommendations appreciated, nephrology to dialyze as needed. Result Diagram: 07/08/18 0804 07/08/18 0804 Results 24hrs Laboratory Tests Test 07/08/18 07:43 07/08/18 08:04 POC Venous Lactate 1.3 White Blood Count 9.8 Red Blood Count 3.48 L Hemoglobin 10.5 L Hematocrit 32.4 L Mean Corpuscular Volume 93.1 Mean Corpuscular Hemoglobin 30.2 Mean Corpuscular Hemoglobin Concent 32.4 Red Cell Distribution Width 14.8 H Platelet Count 228 # Mean Platelet Volume 10.8 H Immature Granulocytes % 0.200 Neutrophils % 66.7 Lymphocytes % 24.4 Monocytes % 7.9 Eosinophils % 0.4 Basophils % 0.4 Nucleated Red Blood Cells % 0.0 Immature Granulocytes # 0.020 Neutrophils # 6.6 Lymphocytes # 2.4 Monocytes # 0.8 Eosinophils # 0.0 Basophils # 0.0 Nucleated Red Blood Cells # 0.0 Prothrombin Time 14.1 Prothrombin Time Ratio 1.1 INR International Normalized Ratio 1.08 Activated Partial Thromboplast Time 29.7 Sodium Level 137 Potassium Level 5.4 H Chloride Level 92 L Carbon Dioxide Level 29 Anion Gap 16 H Blood Urea Nitrogen 47 H Creatinine 7.34 H Est Glomerular Filtrat Rate mL/min 6 L Glucose Level 161 Calcium Level 9.9 Total Bilirubin 0.5 Direct Bilirubin 0.00 Indirect Bilirubin 0.5 Aspartate Amino Transf (AST/SGOT) 48 H Alanine Aminotransferase (ALT/SGPT) 16 Alkaline Phosphatase 366 H Troponin I 0.174 *H Total Protein 8.9 H Albumin 4.5 Globulin 4.40 H Albumin/Globulin Ratio 1.02 HPI/ROS Admit Date/Time Admit Date/Time PMH/Family/Social Past Medical History Medications Current Medications Cefepime HCl 50 ml @ 100 mls/hr Q12 IVPB ; Start 07/08/18 at 21:00 IV Flush (NS 3 ml) 3 ml PER PROTOCOL IV ; Start 07/08/18 at 11:00 Ondansetron HCl (Zofran Inj) 4 mg Q6H PRN IV NAUSEA/VOMITING; Start 07/08/18 at 11:00 Aspirin (Aspirin) 81 mg DAILY PO ; Start 07/09/18 at 09:00 Nitroglycerin (Nitroglycerin (Sl Tab) 0.4 Mg) 1 tab Q5M PRN SL .CHEST PAIN; Start 07/08/18 at 11:00 Acetaminophen (Tylenol Tab) 650 mg Q6H PRN PO .PAIN 1-3 OR TEMP; Start 07/08/18 at 11:00 Acetaminophen/ Hydrocodone Bitart (Blachly (5/325)) 1 tab Q6H PRN PO .PAIN 4-6; Start 07/08/18 at 11:00 Morphine Sulfate (morphine) 2 mg Q4H PRN IV .PAIN 7-10; Start 07/08/18 at 11:00 Pantoprazole (Protonix Tab) 40 mg DAILY@06 PO ; Start 07/09/18 at 06:00 Amlodipine Besylate (Norvasc) 10 mg BID PO ; Start 07/08/18 at 21:00 Lisinopril (Zestril) 40 mg DAILY PO ; Start 07/09/18 at 09:00 Atorvastatin Calcium (Lipitor) 80 mg HS PO ; Start 07/08/18 at 21:00 Labetalol HCl (Labetalol) 10 mg Q4H PRN IV sbp greater than 160; Start 07/08/18 at 11:00 Albuterol/ Ipratropium (Duoneb) 3 ml Q6HWA RESP THERAPY HHN ; Start 07/08/18 at 14:00 Albuterol/ Ipratropium (Duoneb) 3 ml Q2H RESP THERAPY PRN HHN shortness of breath; Start 07/08/18 at 11:00 Budesonide (Pulmicort (Neb)) 0.5 mg BID RESP THERAPY HHN ; Start 07/08/18 at 20:00 Coded Allergies: Insulins (Verified Allergy, Unknown, 07/08/18) Penicillins (Verified Allergy, Unknown, 07/08/18) morphine (Verified Allergy, Unknown, 07/08/18) Social History Smoking Status: Never smoker Exam/Review of Systems Vital Signs Vitals Vital Signs Date Temp Pulse Resp B/P (MAP) Pulse Ox O2 O2 Flow FiO2 Time Delivery Rate 07/08/18 90 24 172/82 95 Nasal 2.0 09:30 (112) Cannula 07/08/18 99.2 07:30 EL HOYOS July 08, 2018 13:58
[2018-07-08] MEDS ORDERED: ALBUTEROL/IPRATROPIUM (NEB) 3 ML AMP HHN SCH (14:00)
[2018-07-08] MEDS ORDERED: SOD CHLORIDE 0.9% 1,000 ML IV PRN (14:31)
--- NOTE | 2018-07-08 14:53 | CONS ---
Assessment/Plan Assessment/Plan Assessment/Plan (Daily) # ESRD s/p HD yesterday Above dry weight Chest Xray c/w pulmonary edema Plan HD today # Possible PNA Agree with antibiotics # HTN with history of poor control Resume usual medications: catapres TTS 3 patch, losartan and hydralazine # Elevated troponin Likely due to ESRD Monitor trend Consultation Date/Type/Reason Admit Date/Time Date/Time of Note DATE: 07/08/18 TIME: 14:40 Hx of Present Illness The patient is a 67 year old female with a history of ESRD due to HTN on chronic in center hemodialysis MWF, her last HD was yesterday morning. She reports that 4 liter of fluid were removed yesterday, but she left the dialysis unit 2 Kg above her dry weight. Last night she developed a cough and tactile fever. Toda y she noted shortness of breath and presented to the ED. Chest Xray show bilateral infiltrates. She is being admitted for fluid overload and possible pneumonia. She has a history of poorly controlled hypertension and questionable compliance with medications. Past Medical History ESRD, HTN, Hepatic amyloidosis Home Meds Reported Medications Amlodipine Besylate* (Amlodipine Besylate*) 10 Mg Tablet, 10 MG PO BID, #30 TAB 07/08/18 Omeprazole* (Omeprazole*) 20 Mg Capsule.dr, 20 MG PO DAILY, #30 CAP 07/08/18 Simvastatin* (Zocor*) 10 Mg Tablet, 10 MG PO QHS, #30 TAB 07/08/18 Lisinopril* (Lisinopril*) 40 Mg Tablet, 40 MG PO DAILY, #30 TAB 07/08/18 Discontinued Reported Medications Glipizide* (Glipizide*) 5 Mg Tablet, 2.5 MG PO AC BREAKFAST LUNCH, TAB 04/27/16 Amlodipine Besylate* (Amlodipine Besylate*) 10 Mg Tablet, 10 MG PO DAILY, #30 TAB 04/27/16 Lisinopril* (Lisinopril*) 20 Mg Tablet, 20 MG PO DAILY, #30 TAB 04/27/16 Discontinued Scripts Acetaminophen* (Tylophen*) 500 Mg Capsule, 1 CAP PO Q6H PRN for PAIN AND OR ELEVATED TEMP, #20 CAP Prov:CAROLINA MUHAMMAD PA-C 01/25/18 Hydralazine Hcl* (Hydralazine Hcl*) 25 Mg Tab, 25 MG PO TID for 28 Days, TAB Prov:KIRK HERNANDEZ MD 05/06/16 Medications Current Medications Cefepime HCl 50 ml @ 100 mls/hr Q12 IVPB ; Start 07/08/18 at 21:00 IV Flush (NS 3 ml) 3 ml PER PROTOCOL IV ; Start 07/08/18 at 11:00 Ondansetron HCl (Zofran Inj) 4 mg Q6H PRN IV NAUSEA/VOMITING; Start 07/08/18 at 11:00 Aspirin (Aspirin) 81 mg DAILY PO ; Start 07/09/18 at 09:00 Nitroglycerin (Nitroglycerin (Sl Tab) 0.4 Mg) 1 tab Q5M PRN SL .CHEST PAIN; Start 07/08/18 at 11:00 Acetaminophen (Tylenol Tab) 650 mg Q6H PRN PO .PAIN 1-3 OR TEMP; Start 07/08/18 at 11:00 Acetaminophen/ Hydrocodone Bitart ([place] (5/325)) 1 tab Q6H PRN PO .PAIN 4-6; Start 07/08/18 at 11:00 Morphine Sulfate (morphine) 2 mg Q4H PRN IV .PAIN 7-10; Start 07/08/18 at 11:00 Pantoprazole (Protonix Tab) 40 mg DAILY@06 PO ; Start 07/09/18 at 06:00 Amlodipine Besylate (Norvasc) 10 mg BID PO ; Start 07/08/18 at 21:00 Lisinopril (Zestril) 40 mg DAILY PO ; Start 07/09/18 at 09:00 Atorvastatin Calcium (Lipitor) 80 mg HS PO ; Start 07/08/18 at 21:00 Labetalol HCl (Labetalol) 10 mg Q4H PRN IV sbp greater than 160; Start 07/08/18 at 11:00 Albuterol/ Ipratropium (Duoneb) 3 ml Q6HWA RESP THERAPY HHN ; Start 07/08/18 at 14:00 Albuterol/ Ipratropium (Duoneb) 3 ml Q2H RESP THERAPY PRN HHN shortness of breath; Start 07/08/18 at 11:00 Budesonide (Pulmicort (Neb)) 0.5 mg BID RESP THERAPY HHN ; Start 07/08/18 at 20:00 Allergies: Coded Allergies: Insulins (Verified Allergy, Unknown, 07/08/18) Penicillins (Verified Allergy, Unknown, 07/08/18) morphine (Verified Allergy, Unknown, 07/08/18) Past Surgical History Past Surgical Hx: other (AV fistula creation ) Family History Significant Family History: no pertinent family hx Social History Alcohol Use: none Smoking Status: Never smoker Exam/Review of Systems Exam Vitals Vital Signs Date Temp Pulse Resp B/P (MAP) Pulse Ox O2 O2 Flow FiO2 Time Delivery Rate 07/08/18 99.4 89 19 166/77 97 Nasal 2.0 14:09 (106) Cannula Constitutional: alert Head: normocephalic, atraumatic Neck: No jvd Respiratory: crackles/rales (bilateral) Cardiovascular: regular rate and rhythm; No edema Extremities: other (AVF LUE); No edema Results Result Diagram: 07/08/18 0804 07/08/18 0804 Results 24hrs Laboratory Tests Test 07/08/18 07:43 07/08/18 08:04 POC Venous Lactate 1.3 White Blood Count 9.8 Red Blood Count 3.48 L Hemoglobin 10.5 L Hematocrit 32.4 L Mean Corpuscular Volume 93.1 Mean Corpuscular Hemoglobin 30.2 Mean Corpuscular Hemoglobin Concent 32.4 Red Cell Distribution Width 14.8 H Platelet Count 228 # Mean Platelet Volume 10.8 H Immature Granulocytes % 0.200 Neutrophils % 66.7 Lymphocytes % 24.4 Monocytes % 7.9 Eosinophils % 0.4 Basophils % 0.4 Nucleated Red Blood Cells % 0.0 Immature Granulocytes # 0.020 Neutrophils # 6.6 Lymphocytes # 2.4 Monocytes # 0.8 Eosinophils # 0.0 Basophils # 0.0 Nucleated Red Blood Cells # 0.0 Prothrombin Time 14.1 Prothrombin Time Ratio 1.1 INR International Normalized Ratio 1.08 Activated Partial Thromboplast Time 29.7 Sodium Level 137 Potassium Level 5.4 H Chloride Level 92 L Carbon Dioxide Level 29 Anion Gap 16 H Blood Urea Nitrogen 47 H Creatinine 7.34 H Est Glomerular Filtrat Rate mL/min 6 L Glucose Level 161 Calcium Level 9.9 Total Bilirubin 0.5 Direct Bilirubin 0.00 Indirect Bilirubin 0.5 Aspartate Amino Transf (AST/SGOT) 48 H Alanine Aminotransferase (ALT/SGPT) 16 Alkaline Phosphatase 366 H Troponin I 0.174 *H Total Protein 8.9 H Albumin 4.5 Globulin 4.40 H Albumin/Globulin Ratio 1.02 Medications Medication Current Medications Cefepime HCl 50 ml @ 100 mls/hr Q12 IVPB ; Start 07/08/18 at 21:00 IV Flush (NS 3 ml) 3 ml PER PROTOCOL IV ; Start 07/08/18 at 11:00 Ondansetron HCl (Zofran Inj) 4 mg Q6H PRN IV NAUSEA/VOMITING; Start 07/08/18 at 11:00 Aspirin (Aspirin) 81 mg DAILY PO ; Start 07/09/18 at 09:00 Nitroglycerin (Nitroglycerin (Sl Tab) 0.4 Mg) 1 tab Q5M PRN SL .CHEST PAIN; Start 07/08/18 at 11:00 Acetaminophen (Tylenol Tab) 650 mg Q6H PRN PO .PAIN 1-3 OR TEMP; Start 07/08/18 at 11:00 Acetaminophen/ Hydrocodone Bitart ([place] (5/325)) 1 tab Q6H PRN PO .PAIN 4-6; Start 07/08/18 at 11:00 Morphine Sulfate (morphine) 2 mg Q4H PRN IV .PAIN 7-10; Start 07/08/18 at 11:00 Pantoprazole (Protonix Tab) 40 mg DAILY@06 PO ; Start 07/09/18 at 06:00 Amlodipine Besylate (Norvasc) 10 mg BID PO ; Start 07/08/18 at 21:00 Lisinopril (Zestril) 40 mg DAILY PO ; Start 07/09/18 at 09:00 Atorvastatin Calcium (Lipitor) 80 mg HS PO ; Start 07/08/18 at 21:00 Labetalol HCl (Labetalol) 10 mg Q4H PRN IV sbp greater than 160; Start 07/08/18 at 11:00 Albuterol/ Ipratropium (Duoneb) 3 ml Q6HWA RESP THERAPY HHN ; Start 07/08/18 at 14:00 Albuterol/ Ipratropium (Duoneb) 3 ml Q2H RESP THERAPY PRN HHN shortness of breath; Start 07/08/18 at 11:00 Budesonide (Pulmicort (Neb)) 0.5 mg BID RESP THERAPY HHN ; Start 07/08/18 at 20:00 PRABHA BANEGAS MD July 08, 2018 14:51
[2018-07-08 14:58] VITALS: PULSE 92
[2018-07-08] MEDS ORDERED: ALBUMIN HUMAN 25% 50 ML IV PRN (15:00)
[2018-07-08] MEDS ORDERED: CLONIDINE 0.3 MG/24 HR PATCH TRANSDERM ONE (15:00)
[2018-07-08] MEDS ORDERED: LOSARTAN 50 MG TAB PO ONE (15:00)
[2018-07-08 15:02] VITALS: Ht 157.5 cm; Wt 59.2 kg
[2018-07-08 15:27] VITALS: BP 186/88; PULSE 89; RESP 19
[2018-07-08 16:00] VITALS: PULSE 91
[2018-07-08 16:20] VITALS: BP 176/86
[2018-07-08] MEDS ORDERED: hydrALAzine 20 MG INJ IV PRN (17:00)
[2018-07-08 20:00] VITALS: BP 180/90; PULSE 92; RESP 18
[2018-07-08] MEDS ORDERED: BUDESONIDE (NEB) 0.5MG/2ML AMP HHN SCH ×2 (20:00→23:20)
[2018-07-08] MEDS ORDERED: ATORVASTATIN 80 MG TAB PO SCH (21:00)
[2018-07-08] MEDS ORDERED: CEFEPIME 1GM/50 ML (PMX) 50 ML IVPB SCH (21:00)
[2018-07-08] MEDS ORDERED: AMLODIPINE 10 MG TAB PO SCH (21:00)
[2018-07-09] VITALS: BP 179/83; PULSE 97; PULSE 98; RESP 18
[2018-07-09] MEDS ORDERED: LISINOPRIL 20 MG TAB PO ONE (03:00)
[2018-07-09 03:14] VITALS: PULSE 102
[2018-07-09] MEDS ORDERED: PANTOPRAZOLE (EC) 40 MG TAB PO SCH (06:00)
--- NOTE | 2018-07-09 08:43 | DS ---
Date/Time of Note Date/Time of Note DATE: 07/09/18 TIME: 08:43 Discharge Summary Admission/Discharge Info Admit Date/Time July 08, 2018 at 10:25 Discharge Date/Time July 09, 2018 at 03:21 Patient Condition: Serious Hospital Course Patient and patient's daughter signed patient AGAINST MEDICAL ADVICE overnight, night physician was speaking to the nurse. And patient's daughter and patient decided to leave AGAINST MEDICAL ADVICE. All risks including and debility were explained to patient before leaving AMA. Home Meds Reported Medications Amlodipine Besylate* (Amlodipine Besylate*) 10 Mg Tablet, 10 MG PO BID, #30 TAB 07/08/18 Omeprazole* (Omeprazole*) 20 Mg Capsule.dr, 20 MG PO DAILY, #30 CAP 07/08/18 Simvastatin* (Zocor*) 10 Mg Tablet, 10 MG PO QHS, #30 TAB 07/08/18 Lisinopril* (Lisinopril*) 40 Mg Tablet, 40 MG PO DAILY, #30 TAB 07/08/18 Discontinued Reported Medications Glipizide* (Glipizide*) 5 Mg Tablet, 2.5 MG PO AC BREAKFAST LUNCH, TAB 04/27/16 Amlodipine Besylate* (Amlodipine Besylate*) 10 Mg Tablet, 10 MG PO DAILY, #30 TAB 04/27/16 Lisinopril* (Lisinopril*) 20 Mg Tablet, 20 MG PO DAILY, #30 TAB 04/27/16 Discontinued Scripts Acetaminophen* (Tylophen*) 500 Mg Capsule, 1 CAP PO Q6H PRN for PAIN AND OR ELEVATED TEMP, #20 CAP Prov:CRAOLINA MUHAMMAD PA-C 01/25/18 Hydralazine Hcl* (Hydralazine Hcl*) 25 Mg Tab, 25 MG PO TID for 28 Days, TAB Prov:KIRK HERNANDEZ MD 05/06/16 Primary Care Provider Not On Staff Doctor Time spent on discharge: > 30 minutes Pending Labs Laboratory Tests Test 07/08/18 15:37 07/08/18 22:53 Troponin I 0.650 ng/ml (0.000-0.120) 0.921 ng/ml (0.000-0.120) EL HOYOS July 09, 2018 08:43
[2018-07-09] MEDS ORDERED: LISINOPRIL 20 MG TAB PO SCH ×2 (09:00)
[2018-07-09] MEDS ORDERED: ASPIRIN 81 MG TAB PO SCH (09:00)
== END 2018-07-09 03:21 | disposition left against medical advice (07) | DRG 193 ==
LOC: E/R 07:25 → 6WM 10:25 → SUATTDRO 10:51
PROVIDERS: ADMIT Internal Medicine; ATTEND Internal Medicine
DX: J18.9 Pneumonia, unspecified organism (principal); N18.6 End stage renal disease; J96.01 Acute respiratory failure with hypoxia; I12.0 Hypertensive chronic kidney disease with stage 5 chronic kidney disease or end stage renal disease; E78.5 Hyperlipidemia, unspecified; R74.8 Abnormal levels of other serum enzymes; K21.9 Gastro-esophageal reflux disease without esophagitis; I16.0 Hypertensive urgency; Z88.0 Allergy status to penicillin; Z90.49 Acquired absence of other specified parts of digestive tract; Z98.51 Tubal ligation status; Z99.2 Dependence on renal dialysis
CPT/HCPCS: 36415; 71045; 80053; 83605; 84484; 85025; 85610; 85730; 87340; 87400; 93005; 94640; 94664; 96365; J0692; J1956; J3370